=== PATIENT | male | born 1945 | race Caucasian/White ===

== ENCOUNTER 2017-01-13 15:18 | Inpatient (IN) ==
[2017-01-13] MEDS ORDERED: Ipratropium/Albuterol Neb 3 ML IH SCH (18:30)
--- NOTE | 2017-01-13 18:39 | Internal Med History&Physical ---
Date of Encounter: 01/13/17 Time of Encounter: 18:35 Assessment and Plan (1) Acute respiratory failure with hypoxia Current visit: Yes Status: Acute Patient is currently on 5 to 6 L of nasal oxygen. Patient is speaking in 3 Padilla sentences. We will keep BiPAP at bedside any distress patient will be plACED on BiPAP. Arterial blood gas will be performed. (2) Chest pain Current visit: Yes Status: Acute Serial cardiac markers. Qualifiers: Qualified Code(s): R07.9 - Chest pain, unspecified (3) Acute exacerbation of COPD with asthma Current visit: No Status: Acute I will start the patient level IV steroids [id number] nebulizer treatment every 3 hours. (4) Influenzal bronchopneumonia Current visit: No Status: Acute Patient is getting tiny school. I can see on my exam that there are areas of bronchial breathing. Suspected pneumonia. I will therefore sought the patient on broad-spectrum antibiotics with vancomycin aZTRreoNAM and levAQUIN. Check sputum culture Internal Medicine - H&P: HPI Chief complaint: sob History of present illness: Mr. Rod is a 71 year old male with a history of COPD on 2 L home oxygen presents from [facility] after he presented there with them ain' t complaining of shortness of breath. For the past 2 weeks patient has been having wars and shortness of breath to the point where he is unable to breathe rest associated with productive cough of thick yellow sputum chills and notable chest wheezing. He has been using his nebulizer treatment every 4 hours and has received from his doctor multiple courses of steroids and antibiotics without improvement of his symptoms and therefore presented to the emergency room [facility]. Patient also this morning had fevers and chills and his temperature was up to 101 in [facility]. Patient also had episode overthrew sternal chest pain noticed that it will get worse with cough. Denies any prior history of coronary artery disease. Patient was hypoxic on our arrival to [facility] therefore he has been placed on BiPAP with 60% during. Patient mentioned that he was treated empirically for influenza about 2 weeks ago one has caught the flu completed the course over notices no improvement in symptoms. Past Med Surg Social Fam HX - Past Medical History Medical history: COPD, hyperlipidemia Psychiatric history: no psych history - Social History Smoking Status: Former smoker Smokeless Tobacco Status: No Alcohol use: occasionally Drug use: none - Family History Mother Hx Family Cardiac Disorders: Yes Father Hx Family Cardiac Disorders: Yes Hx Family Cancer: Yes Internal Medicine - H&P: Meds Hydrocodone/Acetaminophen [[place] 5-325 Tablet] 1 each PO Q4H PRN #10 tablet [Rx] Ibuprofen [Motrin] 600 mg PO Q6-8H PRN #30 tablet 10/01/15 [Rx] Albuterol Neb [Proventil Neb] 2.5 mg IH Q4HR PRN 10/05/15 [History] Albuterol Sulfate [Proair Respiclick] 2 puff IH Q4H PRN 10/05/15 [History] Budesonide/Formoterol 160/4.5 [Symbicort] 2 puff IH BIDR 10/05/15 [History] Cholecalciferol (Vitamin D3) [Vitamin D] 2,000 unit PO DAILY 10/05/15 [History] Dicyclomine [Bentyl] 10 mg PO QID 10/05/15 [History] Hydrochlorothiazide 25 mg PO DAILY 10/05/15 [History] Hydrocortisone [Cortef] 20 mg PO QAM 10/05/15 [History] Hydrocortisone [Cortef] 40 mg PO QPM 10/05/15 [History] Ipratropium [place] 0 ml NS AD PRN 10/05/15 [History] Levothyroxine [Synthroid] 100 mcg PO QAM 10/05/15 [History] Meclizine [Antivert] 25 mg PO DAILY 10/05/15 [History] Naproxen [Naprosyn] 500 mg PO Q12H 10/05/15 [History] Omeprazole [PriLOSEC] 20 mg PO DAILY 10/05/15 [History] Oxygen 2 l NS AD 10/05/15 [History] PredniSONE 10 mg PO DAILY #63 tablet 10/05/15 [Rx] Roflumilast [Daliresp] 500 mcg PO DAILY 10/05/15 [History] Theophylline Anhydrous [Theodur] 200 mg PO BID 10/05/15 [History] Tiotropium [Spiriva] 18 mcg IH DAILY 10/05/15 [History] Cephalexin [Keflex] 500 mg PO QID #40 capsule 01/11/16 [Rx] HYDROcodone BIT/Homatropine LQ [Hycodan Syrup] 5 mg PO Q6H PRN #120 ml 01/11/16 [Rx] PredniSONE See Taper PO DAILY #18 tablet 01/11/16 [Rx] Hydrocodone/Acetaminophen [[place] 5-325 Tablet] 1 tab PO Q6H PRN #16 tab [Rx] HYDROcodone/Acet 5/325 mg [[place] 5-325 mg] 1 tab PO Q6H PRN #6 tab 12/22/16 [Rx] Allergies fluticasone furoate [From Breo Ellipta] Allergy (Verified 12/22/16 13:08) Anaphylaxis Penicillins Allergy (Verified 12/22/16 13:08) Difficulty Breathing vilanterol [From Breo Ellipta] Allergy (Verified 12/22/16 13:08) Anaphylaxis All Systems PM: A 10-system review of systems was performed and is negative for pertinent findings except as documented above in the HPI. Review of systems: 10 point ROS is negative except for HPI - Constitutional Vitals: Temp Pulse Resp BP Pulse Ox 98.1 F 85 16 125/68 97 01/13/17 18:32 01/13/17 18:32 01/13/17 18:32 01/13/17 18:32 01/13/17 18:32 Exam: Gen.: patient is alert and oriented times 3 mild distress with conversation Gemma: normal S1 S2 no additional sounds remember chest: significantly diminished air entry scattered expiratory wheezing areas of bronchial breathing in the right BASE abdomen soft nontender nondistended lower extremity no swelling
[2017-01-13] MEDS ORDERED: Vancomycin 1,000 MG in D5% in Water 250 ML IVPB SCH (19:00)
[2017-01-13] MEDS ORDERED: Vancomycin 1,500 MG in D5% in Water 250 ML IVPB ONE (19:27)
[2017-01-13] MEDS: Ipratropium/Albuterol Neb 3 ML IH SCH ×2 (19:58→23:18)
[2017-01-13] MEDS: methylPREDNISolone 125 MG/2 ML VIAL IVP SCH (20:35)
[2017-01-14] MEDS: methylPREDNISolone 125 MG/2 ML VIAL IVP SCH ×3 (00:06→16:01)
[2017-01-14] MEDS: Aztreonam 1,000 MG in D5% in Water (Mini-Bag+) 100 ML IVPB SCH ×2 (00:06→09:17)
[2017-01-14] MEDS: Ipratropium/Albuterol Neb 3 ML IH SCH ×8 (03:47→23:11)
[2017-01-14 05:27] LABS: Basophils % 0.1 %; Hematocrit 41.2 % (37.5-50.1); Hemoglobin 13.5 g/dL (12.9-16.9); Immature Granulocytes % 0.9 % (0-4); Lymphocytes # 0.2 K/mcL (0.6-4.6); Lymphocytes % 1.1 %; Mean Corpuscular HGB Conc 32.8 g/dL (31.6-35.5); Mean Corpuscular Hemoglobin 30.3 pg (28.0-33.3); Mean Corpuscular Volume 92.6 fL (83.0-100.0); Mean Platelet Volume 10.4 fL (9.4-12.4); Monocytes # 0.2 K/mcL (0.0-1.3); Monocytes % 1.5 %; Platelet Count 195 K/mcL (140-400); Red Blood Count 4.45 M/mcL (4.19-5.50); Red Cell Distribution Width 13.2 % (11.5-14.5); Segmented Neutrophils % 96.4 %
[2017-01-14 05:28] LABS: Neutrophils # 14.7 K/mcL (1.6-8.9)
[2017-01-14 05:48] LABS: BUN/Creatinine Ratio 20 (6-26); Blood Urea Nitrogen 15 mg/dL (8-26); C-Reactive Protein 53 mg/L (Less than 5); Calcium 8.4 mg/dL (8.6-10.8); Carbon Dioxide 28 mEq/L (19-29); Chloride 105 mEq/L (98-109); Creatine Kinase 54 Units/L (30-200); Glucose 103 mg/dL (70-99); Magnesium 2.3 mg/dL (1.6-2.6); Osmolality,Calculated 291 (280-300); Potassium 4.1 mEq/L (3.5-4.5); Sodium 140 mEq/L (136-145); eGFR For African Americans > 60 (> 60); eGFR For Non-African Americans > 60 (> 60)
[2017-01-14 05:53] LABS: Platelet Estimate Normal (Normal)
[2017-01-14] MEDS ORDERED: Vancomycin 1,000 MG in D5% in Water 250 ML IVPB SCH (08:00)
[2017-01-14] MEDS: Aspirin Enteric Coated 81 MG Tablet PO SCH (09:19)
[2017-01-14] MEDS: Budesonide/Formoterol 160/4.5 MDI IH SCH ×2 (11:13→20:00)
[2017-01-14] MEDS ORDERED: *HR* HYDROcodone/Acet 5/325 mg TABLET PO PRN (11:35)
[2017-01-14] MEDS ORDERED: Acetaminophen 325 MG TABLET PO PRN (11:35)
[2017-01-14] MEDS: Levofloxacin 750 MG/150 ML 750 MG/150 ML BAG IVPB SCH (11:38)
--- NOTE | 2017-01-14 13:53 | Internal Med Progress Note ---
Date of Encounter: 01/13/17 Time of Encounter: 13:51 - Assessment and plan (1) Acute exacerbation of COPD with asthma Current Visit: No Status: Acute Assessment and plan: still wheezing on exam with decreased breath sounds. possible exacerbation 2/2 influenza that is positive. he is on maintenance baseline prednisone at home which he has been taking since he was diagnosed with ILD many yrs ago. will keep him at 60mg IV q8h for now. continue duonebs q4h oliver and home dose inhalers along with 5 days of levoflox. titrate o2 to maintain sats >88-92% uses 2 l of NC at night. CXR shows emphysema with llung nodule, no signs of pneumonia. (2) Acute respiratory failure with hypoxia Current Visit: Yes Status: Acute Assessment and plan: 2/2 COPD exacerbation with influenza h/o ILD on chronic steroids treatment as above. (3) Adrenal insufficiency ([place]'s disease) Current Visit: Yes Status: Acute Assessment and plan: 2/2 chronic steroid use for her ILD she is on low dose hydrocortisone when he is taking 5 mg of prednisone. deana hold for now given that he is on high dose steroids. - Time Spent With Patient 25 - 35 minutes - Subjective Interval history: Patient seen at the bedside, appears to be in mild respiratory distress. However reports that he feels better than yesterday. He has mild cough with no fever or chest pain. Has history of interstitial lung disease and is on daily maintenance prednisone at home. - Constitutional Vitals: Temp Pulse Resp BP Pulse Ox 98.2 F 89 20 135/65 96 01/14/17 11:45 01/14/17 11:45 01/14/17 11:45 01/14/17 11:45 01/14/17 11:45 General appearance: Present: A&O X 3, no acute distress Exam: Gen.: patient is alert and oriented timesx3 CVS: normal S1 S2 no additional sounds . chest: significantly diminished air entry scattered expiratory wheezing abdomen soft nontender nondistended, bs are present ext- lower extremity no swelling Internal Medicine: Result - Labs CBC & Chem 7: 01/14/17 04:28 01/14/17 04:28 Labs: Short CBC 01/14/17 Range/Units 04:28 WBC 15.2 H (4.3-11.1) K/mcL Hgb 13.5 D (12.9-16.9) g/dL Hct 41.2 (37.5-50.1) % Plt Count 195 (140-400) K/mcL Neutrophils # 14.7 H (1.6-8.9) K/mcL BMP 01/14/17 04:28 Sodium 140 Potassium 4.1 Chloride 105 Carbon Dioxide 28 BUN 15 Creatinine 0.74 Glucose 103 H Calcium 8.4 L Cardiac Enzymes 01/13/17 01/14/17 Range/Units 22:02 04:28 Troponin I 0.02 0.02 (0-0.03) ng/mL Consult Discharge Plan - Plan Referrals: Ara Zhang MD [Primary Care Provider] - 01/20/17 10:30 am (Web request made 01/13/17)
[2017-01-14] MEDS ORDERED: Aztreonam 1,000 MG in D5% in Water (Mini-Bag+) 100 ML IVPB SCH (19:00)
[2017-01-15] MEDS: methylPREDNISolone 125 MG/2 ML VIAL IVP SCH ×2 (01:04→09:14)
[2017-01-15] MEDS: Ipratropium/Albuterol Neb 3 ML IH SCH ×6 (04:26→23:13)
[2017-01-15] MEDS: *HR* Enoxaparin 40 MG/0.4 ML SYRINGE SQ SCH (05:49)
[2017-01-15] MEDS: Budesonide/Formoterol 160/4.5 MDI IH SCH ×2 (07:33→19:54)
[2017-01-15] MEDS: Aspirin Enteric Coated 81 MG Tablet PO SCH (09:14)
[2017-01-15 09:37] LABS: Basophils % 0.2 %; Hematocrit 42.5 % (37.5-50.1); Hemoglobin 13.6 g/dL (12.9-16.9); Immature Granulocytes % 1.7 % (0-4); Lymphocytes # 0.2 K/mcL (0.6-4.6); Lymphocytes % 1.6 %; Mean Corpuscular Hemoglobin 29.8 pg (28.0-33.3); Mean Corpuscular Volume 93.2 fL (83.0-100.0); Mean Platelet Volume 10.2 fL (9.4-12.4); Monocytes # 0.4 K/mcL (0.0-1.3); Monocytes % 3.3 %; Neutrophils # 12.3 K/mcL (1.6-8.9); Platelet Count 188 K/mcL (140-400); Red Blood Count 4.56 M/mcL (4.19-5.50); Segmented Neutrophils % 93.2 %
[2017-01-15 09:52] LABS: BUN/Creatinine Ratio 24 (6-26); Blood Urea Nitrogen 17 mg/dL (8-26); Calcium 8.9 mg/dL (8.6-10.8); Carbon Dioxide 31 mEq/L (19-29); Chloride 100 mEq/L (98-109); Glucose 146 mg/dL (70-99); Osmolality,Calculated 288 (280-300); Potassium 4.1 mEq/L (3.5-4.5); Sodium 137 mEq/L (136-145); eGFR For African Americans > 60 (> 60); eGFR For Non-African Americans > 60 (> 60)
--- NOTE | 2017-01-15 12:01 | Internal Med Progress Note ---
Date of Encounter: 01/15/17 Time of Encounter: 11:58 - Assessment and plan (1) Acute exacerbation of COPD with asthma Current Visit: No Status: Acute Assessment and plan: still wheezing on exam with decreased breath sounds. possible exacerbation 2/2 influenza that is positive. he is on maintenance baseline prednisone at home which he has been taking since he was diagnosed with ILD many yrs ago. will decrease steroids to 40mg IV q8h for now. continue duonebs q4h oliver and home dose inhalers along with 5 days of levoflox. titrate o2 to maintain sats >88-92% uses 2 l of NC at night. CXR shows emphysema with llung nodule, no signs of pneumonia. (2) Acute respiratory failure with hypoxia Current Visit: Yes Status: Acute Assessment and plan: 2/2 COPD exacerbation with influenza h/o ILD on chronic steroids treatment as above. (3) Adrenal insufficiency ([place]'s disease) Current Visit: Yes Status: Acute Assessment and plan: 2/2 chronic steroid use for her ILD she is on low dose hydrocortisone when he is taking 5 mg of prednisone. deana hold for now given that he is on high dose steroids. - Time Spent With Patient 25 - 35 minutes - Subjective Interval history: Patient seen at the bedside, appears to be much better today. He has mild cough with no fever or chest pain. Has history of interstitial lung disease and is on daily maintenance prednisone at home. being treated for flu and COPD exacerbation. - Constitutional Vitals: Temp Pulse Resp BP Pulse Ox 98 F 83 84 145/69 96 01/15/17 11:14 01/15/17 11:14 01/15/17 11:14 01/15/17 11:14 01/15/17 11:14 General appearance: Present: A&O X 3, no acute distress Exam: Gen.: patient is alert and oriented timesx3 CVS: normal S1 S2 no additional sounds . chest: significantly diminished air entry , still has wheezing. abdomen soft nontender nondistended, bs are present ext- lower extremity no swelling Internal Medicine: Result - Labs CBC & Chem 7: 01/15/17 09:10 01/15/17 09:10 Labs: Short CBC 01/15/17 Range/Units 09:10 WBC 13.2 H (4.3-11.1) K/mcL Hgb 13.6 (12.9-16.9) g/dL Hct 42.5 (37.5-50.1) % Plt Count 188 (140-400) K/mcL Neutrophils # 12.3 H (1.6-8.9) K/mcL BMP 01/15/17 09:10 Sodium 137 Potassium 4.1 Chloride 100 Carbon Dioxide 31 H BUN 17 Creatinine 0.72 Glucose 146 H Calcium 8.9 Consult Discharge Plan - Plan Referrals: Ara Zhang MD [Primary Care Provider] - 01/20/17 10:30 am (Web request made 01/13/17)
[2017-01-15] MEDS: Levofloxacin 750 MG/150 ML 750 MG/150 ML BAG IVPB SCH (12:58)
[2017-01-15] MEDS: MethylPREDNISolone 40 MG/ML VIAL IVP SCH ×2 (15:46→23:24)
[2017-01-16] MEDS: Ipratropium/Albuterol Neb 3 ML IH SCH ×2 (04:15→07:45)
[2017-01-16] MEDS: *HR* Enoxaparin 40 MG/0.4 ML SYRINGE SQ SCH (04:59)
[2017-01-16 07:13] VITALS: BP 142/85
[2017-01-16] MEDS: Budesonide/Formoterol 160/4.5 MDI IH SCH (07:41)
[2017-01-16] MEDS: MethylPREDNISolone 40 MG/ML VIAL IVP SCH (07:53)
[2017-01-16] MEDS: Aspirin Enteric Coated 81 MG Tablet PO SCH (07:54)
[2017-01-16 08:42] LABS: Basophils % 0.3 %; Hemoglobin 14.5 g/dL (12.9-16.9); Immature Granulocytes % 1.1 % (0-4); Lymphocytes # 0.5 K/mcL (0.6-4.6); Lymphocytes % 4.3 %; Mean Corpuscular HGB Conc 32.2 g/dL (31.6-35.5); Mean Corpuscular Hemoglobin 29.7 pg (28.0-33.3); Mean Platelet Volume 9.7 fL (9.4-12.4); Monocytes # 0.4 K/mcL (0.0-1.3); Monocytes % 3.3 %; Neutrophils # 10.3 K/mcL (1.6-8.9); Platelet Count 202 K/mcL (140-400); Red Blood Count 4.89 M/mcL (4.19-5.50); Red Cell Distribution Width 12.8 % (11.5-14.5)
[2017-01-16 08:56] LABS: BUN/Creatinine Ratio 25 (6-26); Blood Urea Nitrogen 17 mg/dL (8-26); Calcium 9.3 mg/dL (8.6-10.8); Carbon Dioxide 32 mEq/L (19-29); Chloride 98 mEq/L (98-109); Glucose 124 mg/dL (70-99); Osmolality,Calculated 289 (280-300); Potassium 4.1 mEq/L (3.5-4.5); Sodium 138 mEq/L (136-145); eGFR For African Americans > 60 (> 60); eGFR For Non-African Americans > 60 (> 60)
--- NOTE | 2017-01-16 10:12 | Discharge Summary ---
Date of Encounter: 01/16/17 Time of Encounter: 10:07 - Discharge Diagnosis (1) Acute exacerbation of COPD with asthma Priority: Primary Status: Acute (2) Acute respiratory failure with hypoxia Priority: Primary Status: Acute (3) Adrenal insufficiency ([place]'s disease) Priority: Secondary Status: Acute - Discharge Medications Prescriptions: Levofloxacin 750 mg PO DAILY #4 tablet Oseltamivir [Tamiflu] 75 mg PO Q12H 2 Days PredniSONE See Taper PO DAILY #35 tablet Home Medications: Albuterol Neb [Proventil Neb] 2.5 mg IH Q4HR PRN 10/05/15 [History] Albuterol Sulfate [Proair Respiclick] 2 puff IH Q4H PRN 10/05/15 [History] Budesonide/Formoterol 160/4.5 [Symbicort] 2 puff IH BIDR 10/05/15 [History] Cholecalciferol (Vitamin D3) [Vitamin D3] 2,000 unit PO DAILY 10/05/15 [History] Hydrocortisone [Cortef] 20 mg PO QAM 10/05/15 [History] Hydrocortisone [Cortef] 40 mg PO QPM 10/05/15 [History] Ipratropium [place] 0 ml NS AD PRN 10/05/15 [History] Levothyroxine [Synthroid] 100 mcg PO QAM 10/05/15 [History] Omeprazole [PriLOSEC] 20 mg PO DAILY 10/05/15 [History] Oxygen 2 l NS AD 10/05/15 [History] Tiotropium [Spiriva] 18 mcg IH DAILY 10/05/15 [History] Hydrocodone/Acetaminophen [[place] 5-325 Tablet] 1 tab PO Q6H PRN #16 tab [Rx] Clotrimazole [Mycelex Candi] 10 mg PO 5XD 01/14/17 [History] PredniSONE 5 mg PO DAILY 01/14/17 [History] Levofloxacin 750 mg PO DAILY #4 tablet 01/16/17 [Rx] Oseltamivir [Tamiflu] 75 mg PO Q12H 2 Days 01/16/17 [Rx] PredniSONE See Taper PO DAILY #35 tablet 01/16/17 [Rx] Allergies/Adverse Reactions: Allergies fluticasone furoate [From Breo Ellipta] Allergy (Verified 12/22/16 13:08) Anaphylaxis Penicillins Allergy (Verified 12/22/16 13:08) Difficulty Breathing vilanterol [From Breo Ellipta] Allergy (Verified 12/22/16 13:08) Anaphylaxis Date of admission: 01/13/17 18:25 Primary care physician: Ara Zhang, Discharging clinician: Shane Callaway Anticipated date of discharge: 01/16/17 - Patient Status Disposition: Home, Self-Care Condition: Fair Functional capacity at discharge: independent ambulation Overall status at discharge: patient is back to baseline - Discharge Instructions Follow Up With: Ara Zhang MD [Primary Care Provider] - 01/20/17 10:30 am (Web request made 01/13/17) - Diet and Activity Activity: resume usual activities as tolerated Diet: advance to your usual diet Hospital course: Mr. Rod is a 71 year old male - Time Spent with Patient Total time spent providing and/or coordinating discharge services: - Constitutional Vitals: Temp Pulse Resp BP Pulse Ox 98.3 F 79 18 142/85 95 01/16/17 07:12 01/16/17 07:12 01/16/17 07:41 01/16/17 07:41 01/16/17 07:41 General appearance: Present: A&O X 3, no acute distress
[2017-01-16] MEDS ORDERED: Aminoglycoside Consult 1 EACH MC ONE (11:14)
[2017-01-17 11:32] LABS: CK-MB (CK isoenzymes) 0 % (0-4); CK-MM (CK-isoenzymes) 100 % (96-100)
[2017-01-17 11:32] LABS: CK-MB (CK isoenzymes) 0 % (0-4); CK-MM (CK-isoenzymes) 100 % (96-100)
[2017-01-18 07:18] LABS: CK Total (Ck Isoenzymes) 53 U/L (20-200); CK-BB (CK isoenzymes) 0 % (0-0)
[2017-01-18 07:22] LABS: CK Total (Ck Isoenzymes) 53 U/L (20-200); CK-BB (CK isoenzymes) 0 % (0-0)
== END 2017-01-16 11:15 | disposition home or self-care (01) | DRG 190 ==
LOC: 2ANU
PROVIDERS: ADMIT Hospitalist; ATTEND Internal Medicine Endocrinology, Diabetes & Metabolism

== ENCOUNTER 2019-10-25 11:19 | Observation (INO) ==
[2019-10-25] MEDS ORDERED: Albuterol 2.5 MG/3 ML NEBULIZER IH ONE ×2 (11:36→11:45)
[2019-10-25] MEDS ORDERED: Ipratropium/Albuterol Neb 3 ML IH ONE ×2 (11:36→14:03)
[2019-10-25] MEDS ORDERED: methylPREDNISolone 125 MG/2 ML VIAL IVP ONE (11:36)
[2019-10-25 12:14] LABS: Basophils % 0.1 %; Hematocrit 37.8 % (37.5-50.1); Hemoglobin 11.7 g/dL (12.9-16.9); Immature Granulocytes % 0.5 % (0-4); Lymphocytes # 0.8 K/mcL (0.6-4.6); Lymphocytes % 6.3 %; Mean Corpuscular Hemoglobin 29.5 pg (28.0-33.3); Mean Corpuscular Volume 95.5 fL (83.0-100.0); Mean Platelet Volume 10.1 fL (9.4-12.4); Monocytes # 1.2 K/mcL (0.0-1.3); Monocytes % 9.5 %; Neutrophils # 10.6 K/mcL (1.6-8.9); Platelet Count 274 K/mcL (140-400); Red Blood Count 3.96 M/mcL (4.19-5.50); Red Cell Distribution Width 13.2 % (11.5-14.5); Segmented Neutrophils % 83.6 %; White Blood Count 12.6 K/mcL (4.3-11.1)
[2019-10-25 12:33] LABS: Alanine Aminotransferase 11 Units/L (7-52); Albumin 4.2 g/dL (3.5-5.7); Albumin/Globulin Ratio 1.9 (1.1-2.2); Alkaline Phosphatase 53 Units/L (34-104); Aspartate Amino Transferase 15 Units/L (13-39); BUN/Creatinine Ratio 27 (6-26); Bilirubin,Direct 0.1 mg/dL (0.0-0.2); Bilirubin,Indirect 0.3 mg/dL (0.0-1.0); Bilirubin,Total 0.4 mg/dL (0.3-1.0); Blood Urea Nitrogen 19 mg/dL (8-23); Calcium 10.7 mg/dL (8.6-10.3); Carbon Dioxide 36 mEq/L (23-29); Chloride 98 mEq/L (98-107); Globulin 2.2 g/dL (2.4-3.5); Glucose 84 mg/dL (70-105); Osmolality,Calculated 289 (280-300); Potassium 4.6 mEq/L (3.5-5.1); Sodium 139 mEq/L (136-145); Total Protein 6.4 g/dL (6.4-8.9); Troponin I < 0.03 ng/mL (< 0.04); eGFR For African Americans > 60 (> 60); eGFR For Non-African Americans > 60 (> 60)
[2019-10-25] MEDS ORDERED: Naloxone 0.4 MG/ML INJ IVP PRN (15:36)
[2019-10-25] MEDS ORDERED: Acetaminophen 325 MG TABLET PO PRN (15:36)
[2019-10-25] MEDS ORDERED: Ipratropium/Albuterol Neb 3 ML IH PRN (15:42)
[2019-10-25 16:03] LABS: INR 0.8; Prothrombin Time 9.4 Seconds (9.4-12.1)
[2019-10-25 16:05] LABS: Activated Partial Thrombo Time 28.2 Seconds (26.0-36.0)
[2019-10-25] MEDS ORDERED: Cholecalciferol (D-3) 1,000 UNIT (25MCG) TABLET PO SCH (16:30)
[2019-10-25] MEDS: Albuterol 2.5 MG/3 ML NEBULIZER IH SCH ×3 (17:00→23:44)
[2019-10-25] MEDS ORDERED: MethylPREDNISolone 40 MG/ML VIAL IVP SCH (18:00)
[2019-10-25] MEDS: Budesonide/Formoterol 160/4.5 1 PUFF INH IH SCH (19:44)
[2019-10-25] MEDS ORDERED: NON-FORMULARY MEDICATION 1 EACH EACH (Lactose-Reduced Food [Ensure Liquid] 1 BOTTLE) PO SCH (21:00)
[2019-10-25] MEDS: *HR* Heparin 5,000 UNIT/ML VIAL SQ SCH (21:29)
[2019-10-25] MEDS: Doxycycline 100 MG in 0.9 % Sodium Chloride Mini Bag 100 ML IVPB SCH (21:29)
[2019-10-25 22:51] LABS: Adenovirus Not Detected (Not Detect); Bordetella Pertussis Not Detected (Not Detect); Chlamydophila pneumoniae Not Detected (Not Detect); Coronavirus 229E Not Detected (Not Detect); Coronavirus HKU1 DETECTED (Not Detect); Coronavirus NL63 Not Detected (Not Detect); Coronavirus OC43 Not Detected (Not Detect); Human Metapneumovirus Not Detected (Not Detect); Human Rhinovirus/Enterovirus Not Detected (Not Detect); Influenza A Subtype 2009 H1 Not Detected (Not Detect); Influenza B Not Detected (Not Detect); Mycoplasma pneumoniae Not Detected (Not Detect); Parainfluenza Virus 1 Not Detected (Not Detect); Parainfluenza Virus 2 Not Detected (Not Detect); Parainfluenza Virus 3 Not Detected (Not Detect); Parainfluenza Virus 4 Not Detected (Not Detect); Respiratory Syncytial Virus Not Detected (Not Detect)
[2019-10-25] MEDS: MethylPREDNISolone 40 MG/ML VIAL IVP SCH (23:29)
[2019-10-26] MEDS: *HR* OxyCODONE/APAP 7.5/325 TABLET PO PRN ×4 (01:13→18:27)
[2019-10-26] MEDS: Albuterol 2.5 MG/3 ML NEBULIZER IH SCH ×6 (03:26→23:11)
[2019-10-26 06:06] LABS: Hematocrit 39.5 % (37.5-50.1); Hemoglobin 12.4 g/dL (12.9-16.9); Immature Granulocytes % 0.4 % (0-4); Lymphocytes # 0.2 K/mcL (0.6-4.6); Lymphocytes % 2.2 %; Mean Corpuscular HGB Conc 31.4 g/dL (31.6-35.5); Mean Corpuscular Hemoglobin 29.5 pg (28.0-33.3); Mean Platelet Volume 10.2 fL (9.4-12.4); Monocytes # 0.3 K/mcL (0.0-1.3); Monocytes % 2.8 %; Neutrophils # 9.5 K/mcL (1.6-8.9); Platelet Count 283 K/mcL (140-400); Red Cell Distribution Width 13.1 % (11.5-14.5); Segmented Neutrophils % 94.6 %
[2019-10-26 06:13] LABS: BUN/Creatinine Ratio 33 (6-26); Blood Urea Nitrogen 23 mg/dL (8-23); Calcium 9.6 mg/dL (8.6-10.3); Carbon Dioxide 34 mEq/L (23-29); Chloride 99 mEq/L (98-107); Glucose 123 mg/dL (70-105); Magnesium 2.3 mg/dL (1.6-2.6); Osmolality,Calculated 303 (280-300); Phosphorous 3.9 mg/dL (2.7-4.5); Potassium 4.6 mEq/L (3.5-5.1); Sodium 144 mEq/L (136-145); eGFR For African Americans > 60 (> 60); eGFR For Non-African Americans > 60 (> 60)
[2019-10-26] MEDS: *HR* Heparin 5,000 UNIT/ML VIAL SQ SCH ×3 (06:15→23:32)
[2019-10-26] MEDS: Doxycycline 100 MG in 0.9 % Sodium Chloride Mini Bag 100 ML IVPB SCH ×2 (06:16→18:27)
[2019-10-26] MEDS: Budesonide/Formoterol 160/4.5 1 PUFF INH IH SCH ×2 (07:24→19:41)
[2019-10-26] MEDS: Furosemide 40 MG TABLET PO SCH (07:36)
[2019-10-26] MEDS: MethylPREDNISolone 40 MG/ML VIAL IVP SCH ×3 (07:36→23:32)
[2019-10-27] MEDS: *HR* OxyCODONE/APAP 7.5/325 TABLET PO PRN ×4 (01:07→20:57)
[2019-10-27] MEDS: Albuterol 2.5 MG/3 ML NEBULIZER IH SCH ×7 (03:39→23:54)
[2019-10-27] MEDS: Doxycycline 100 MG in 0.9 % Sodium Chloride Mini Bag 100 ML IVPB SCH (05:23)
[2019-10-27] MEDS: *HR* Heparin 5,000 UNIT/ML VIAL SQ SCH ×3 (05:24→20:00)
[2019-10-27] MEDS: Budesonide/Formoterol 160/4.5 1 PUFF INH IH SCH ×2 (07:33→19:49)
[2019-10-27] MEDS: MethylPREDNISolone 40 MG/ML VIAL IVP SCH (07:51)
[2019-10-27] MEDS: Furosemide 40 MG TABLET PO SCH (07:51)
[2019-10-27] MEDS: predniSONE 20 MG TABLET PO SCH (09:53)
[2019-10-27 10:03] LABS: Hematocrit 45.3 % (37.5-50.1); Hemoglobin 13.8 g/dL (12.9-16.9); Mean Corpuscular HGB Conc 30.5 g/dL (31.6-35.5); Mean Corpuscular Hemoglobin 29.8 pg (28.0-33.3); Mean Corpuscular Volume 97.8 fL (83.0-100.0); Mean Platelet Volume 10.4 fL (9.4-12.4); Platelet Count 328 K/mcL (140-400); Red Blood Count 4.63 M/mcL (4.19-5.50); Red Cell Distribution Width 12.9 % (11.5-14.5)
[2019-10-27 10:16] LABS: White Blood Count 15.4 K/mcL (4.3-11.1)
[2019-10-27 10:23] LABS: BUN/Creatinine Ratio 42 (6-26); Blood Urea Nitrogen 28 mg/dL (8-23); Calcium 9.9 mg/dL (8.6-10.3); Carbon Dioxide 37 mEq/L (23-29); Chloride 95 mEq/L (98-107); Glucose 226 mg/dL (70-105); Osmolality,Calculated 301 (280-300); Potassium 4.2 mEq/L (3.5-5.1); Sodium 139 mEq/L (136-145); eGFR For African Americans > 60 (> 60); eGFR For Non-African Americans > 60 (> 60)
[2019-10-27] MEDS: Doxycycline 100 MG CAPSULE PO SCH ×2 (14:45→20:00)
[2019-10-28] MEDS: *HR* OxyCODONE/APAP 7.5/325 TABLET PO PRN ×2 (03:00→08:48)
[2019-10-28] MEDS: Albuterol 2.5 MG/3 ML NEBULIZER IH SCH ×2 (03:49→07:56)
[2019-10-28] MEDS: *HR* Heparin 5,000 UNIT/ML VIAL SQ SCH (05:27)
[2019-10-28 05:39] LABS: Hematocrit 39.6 % (37.5-50.1); Mean Corpuscular HGB Conc 30.8 g/dL (31.6-35.5); Mean Corpuscular Hemoglobin 29.8 pg (28.0-33.3); Mean Corpuscular Volume 96.8 fL (83.0-100.0); Mean Platelet Volume 10.3 fL (9.4-12.4); Platelet Count 269 K/mcL (140-400); Red Blood Count 4.09 M/mcL (4.19-5.50); Red Cell Distribution Width 12.8 % (11.5-14.5); White Blood Count 16.6 K/mcL (4.3-11.1)
[2019-10-28 05:40] LABS: Hemoglobin 12.2 g/dL (12.9-16.9)
[2019-10-28 06:04] LABS: BUN/Creatinine Ratio 45 (6-26); Blood Urea Nitrogen 29 mg/dL (8-23); Carbon Dioxide 41 mEq/L (23-29); Chloride 99 mEq/L (98-107); Glucose 95 mg/dL (70-105); Osmolality,Calculated 300 (280-300); Sodium 142 mEq/L (136-145); eGFR For African Americans > 60 (> 60); eGFR For Non-African Americans > 60 (> 60)
[2019-10-28 06:36] VITALS: BP 126/62
[2019-10-28] MEDS: Budesonide/Formoterol 160/4.5 1 PUFF INH IH SCH (07:56)
[2019-10-28] MEDS: Doxycycline 100 MG CAPSULE PO SCH (08:48)
[2019-10-28] MEDS: predniSONE 20 MG TABLET PO SCH (08:48)
== END 2019-10-28 11:53 | disposition home or self-care (01) ==
LOC: EMEROOARM 11:19 → 3BNU 11:19
PROVIDERS: ADMIT Internal Medicine; ATTEND Internal Medicine

== ENCOUNTER 2020-04-12 19:14 | Inpatient (IN) ==
[2020-04-12] MEDS ORDERED: Nitroglycerin 0.4 MG TAB.SUBL SL ONE (19:27)
[2020-04-12] MEDS: Nitroglycerin 0.4 MG TAB.SUBL SL PRN ×3 (19:30→19:40)
[2020-04-12] MEDS ORDERED: Ipratropium/Albuterol Neb 3 ML IH ONE (19:31)
[2020-04-12] MEDS ORDERED: methylPREDNISolone 125 MG/2 ML VIAL IVP ONE (19:31)
[2020-04-12 19:53] LABS: Basophils % 0.2 %; Eosinophils % 0.2 %; Hematocrit 37.9 % (37.5-50.1); Hemoglobin 11.3 g/dL (12.9-16.9); Immature Granulocytes % 0.4 % (0-4); Lymphocytes # 0.4 K/mcL (0.6-4.6); Lymphocytes % 3.4 %; Mean Corpuscular HGB Conc 29.8 g/dL (31.6-35.5); Mean Corpuscular Hemoglobin 28.7 pg (28.0-33.3); Mean Corpuscular Volume 96.2 fL (83.0-100.0); Mean Platelet Volume 10.2 fL (9.4-12.4); Monocytes # 0.8 K/mcL (0.0-1.3); Monocytes % 6.5 %; Neutrophils # 10.5 K/mcL (1.6-8.9); Platelet Count 302 K/mcL (140-400); Red Blood Count 3.94 M/mcL (4.19-5.50); Red Cell Distribution Width 12.9 % (11.5-14.5); Segmented Neutrophils % 89.3 %; White Blood Count 11.7 K/mcL (4.3-11.1)
[2020-04-12 20:10] LABS: INR 0.8; Prothrombin Time 9.3 Seconds (9.4-12.1)
[2020-04-12 20:13] LABS: Activated Partial Thrombo Time 29.4 Seconds (26.0-36.0)
[2020-04-12 20:20] LABS: BUN/Creatinine Ratio 25 (6-26); Blood Urea Nitrogen 17 mg/dL (8-23); Calcium 10.5 mg/dL (8.6-10.3); Carbon Dioxide 44 mEq/L (23-29); Chloride 93 mEq/L (98-107); Glucose 129 mg/dL (70-105); Osmolality,Calculated 293 (280-300); Potassium 4.3 mEq/L (3.5-5.1); Sodium 140 mEq/L (136-145); Troponin I 0.25 ng/mL (< 0.04); eGFR For African Americans > 60 (> 60); eGFR For Non-African Americans > 60 (> 60)
[2020-04-12] MEDS ORDERED: *HR* Heparin 5,000 UNIT/ML VIAL IVP ONE (20:24)
[2020-04-12] MEDS ORDERED: *HR* Heparin 5,000 UNIT/ML VIAL IVP PRN ×2 (20:24)
[2020-04-12] MEDS ORDERED: Morphine Sulfate 2 MG/ML SYRINGE IVP ONE (20:28)
[2020-04-12] MEDS ORDERED: Heparin 25,000 UNIT/250 ML D5W 25,000 UNIT/250 ML IV.SOLN IVC SCH (20:30)
[2020-04-12] MEDS ORDERED: Naloxone 0.4 MG/ML INJ IVP PRN (22:37)
[2020-04-12] MEDS ORDERED: *HR* OxyCODONE/APAP 7.5/325 TABLET PO PRN (22:38)
[2020-04-12] MEDS ORDERED: LEUPROLIDE ACETATE 30 MG IM SCH (22:45)
[2020-04-12] MEDS ORDERED: NON-FORMULARY MEDICATION 1 EACH EACH (Oxygen 2 L) NS SCH (22:45)
[2020-04-13] MEDS ORDERED: Ipratropium/Albuterol Neb 3 ML IH SCH
[2020-04-13] MEDS: Morphine Sulfate 2 MG/ML SYRINGE IVP PRN ×3 (00:14→22:31)
[2020-04-13] MEDS: Ipratropium/Albuterol Neb 3 ML IH PRN ×3 (03:09→12:55)
[2020-04-13 03:18] LABS: Basophils % 0.1 %; Hematocrit 35.8 % (37.5-50.1); Immature Granulocytes % 0.4 % (0-4); Lymphocytes # 0.3 K/mcL (0.6-4.6); Lymphocytes % 2.9 %; Mean Corpuscular HGB Conc 30.7 g/dL (31.6-35.5); Mean Corpuscular Hemoglobin 29.1 pg (28.0-33.3); Mean Corpuscular Volume 94.7 fL (83.0-100.0); Mean Platelet Volume 10.5 fL (9.4-12.4); Monocytes # 0.1 K/mcL (0.0-1.3); Monocytes % 0.6 %; Neutrophils # 8.9 K/mcL (1.6-8.9); Platelet Count 277 K/mcL (140-400); Red Blood Count 3.78 M/mcL (4.19-5.50); Red Cell Distribution Width 12.9 % (11.5-14.5); White Blood Count 9.3 K/mcL (4.3-11.1)
[2020-04-13 03:39] LABS: BUN/Creatinine Ratio 33 (6-26); Blood Urea Nitrogen 16 mg/dL (8-23); Carbon Dioxide 40 mEq/L (23-29); Chloride 95 mEq/L (98-107); Glucose 141 mg/dL (70-105); Osmolality,Calculated 294 (280-300); Potassium 4.3 mEq/L (3.5-5.1); Sodium 140 mEq/L (136-145); eGFR For African Americans > 60 (> 60); eGFR For Non-African Americans > 60 (> 60)
[2020-04-13 06:02] LABS: VBG HCO3 41 mEq/L (21-27); VBG PCO2 65 mmHg (41-51); VBG PH 7.41 pH Units (7.32-7.42); VBG PO2 223 mmHg (25-50)
[2020-04-13] MEDS: Budesonide/Formoterol 160/4.5 1 PUFF INH IH SCH ×2 (07:39→22:20)
[2020-04-13] MEDS: Doxycycline 100 MG CAPSULE PO SCH ×2 (08:19→22:31)
[2020-04-13] MEDS: Loratadine 10 MG TABLET PO SCH (08:19)
[2020-04-13] MEDS ORDERED: predniSONE 20 MG TABLET PO SCH (09:00)
[2020-04-13] MEDS ORDERED: NON-FORMULARY MEDICATION 1 EACH EACH (Lactose-Reduced Food [Ensure Liquid] 1 BOTTLE) PO SCH (09:00)
[2020-04-13] MEDS ORDERED: NON-FORMULARY MEDICATION 1 EACH EACH (Roflumilast [Daliresp] 500 MCG) PO SCH (09:00)
[2020-04-13] MEDS ORDERED: MethylPREDNISolone 40 MG/ML VIAL IVP SCH (09:00)
[2020-04-13] MEDS ORDERED: *HR* FentaNYL (PF) 100 MCG/2 ML VIAL ONE ×2 (10:25→16:14)
[2020-04-13] MEDS ORDERED: *HR* Midazolam HCl 2 MG/2 ML VIAL ONE ×2 (10:25→16:14)
[2020-04-13] MEDS ORDERED: Heparin 1,000 UNITS/500 mL 500 ML ONE ×2 (10:26→16:02)
[2020-04-13] MEDS ORDERED: Nitroglycerin 1,000 MCG/10 ML VIAL IV ONE ×2 (10:26→16:02)
[2020-04-13] MEDS ORDERED: Tirofiban 12.5 MG/250ML 12.5 MG/250 ML BAG ONE (10:26)
[2020-04-13] MEDS ORDERED: ISOVUE-370 200 ML INFUS..BTL ONE ×2 (10:26→16:02)
[2020-04-13] MEDS ORDERED: *HR* Heparin 10,000 UNIT/10 ML VIAL ONE ×2 (10:26→16:02)
[2020-04-13] MEDS ORDERED: 0.9 % Sodium Chloride 1,000 ML ONE ×4 (10:28→21:10)
[2020-04-13] MEDS ORDERED: Ipratropium/Albuterol Neb 3 ML IH ONE (11:04)
[2020-04-13] MEDS ORDERED: Ipratropium Neb 0.5 MG NEBULIZER IH PRN (12:32)
[2020-04-13] MEDS ORDERED: Artificial Tears SOLN 15 ML BOTTLE BOTH EYES PRN (14:33)
[2020-04-13] MEDS ORDERED: Midazolam HCl 50 MG/100 ML IV.SOLN IVC SCH (14:45)
[2020-04-13] MEDS ORDERED: FentaNYL (PF) 1,000 MCG/100 ML IV.SOLN IVC SCH (14:45)
[2020-04-13] MEDS ORDERED: Artificial Tears SOLN 15 ML BOTTLE BOTH EYES SCH (16:00)
[2020-04-13] MEDS: Ipratropium/Albuterol Neb 3 ML IH SCH ×2 (16:10→22:20)
[2020-04-13] MEDS: MethylPREDNISolone 40 MG/ML VIAL IVP SCH ×3 (16:13→22:31)
[2020-04-13] MEDS ORDERED: Tirofiban 12.5 MG/250ML 12.5 MG/250 ML BAG IVC SCH (17:30)
[2020-04-13] MEDS ORDERED: Chlorhexidine Rinse 15 ML MOUTHWASH MM SCH (21:00)
[2020-04-14 01:15] LABS: Basophils % 0.1 %; Hematocrit 37.8 % (37.5-50.1); Hemoglobin 11.9 g/dL (12.9-16.9); Immature Granulocytes % 0.4 % (0-4); Lymphocytes # 0.3 K/mcL (0.6-4.6); Mean Corpuscular HGB Conc 31.5 g/dL (31.6-35.5); Mean Platelet Volume 10.6 fL (9.4-12.4); Monocytes # 0.5 K/mcL (0.0-1.3); Monocytes % 3.9 %; Neutrophils # 11.7 K/mcL (1.6-8.9); Platelet Count 297 K/mcL (140-400); Red Blood Count 4.11 M/mcL (4.19-5.50); Segmented Neutrophils % 93.6 %; White Blood Count 12.5 K/mcL (4.3-11.1)
[2020-04-14 01:32] LABS: BUN/Creatinine Ratio 35 (6-26); Blood Urea Nitrogen 20 mg/dL (8-23); Calcium 9.9 mg/dL (8.6-10.3); Carbon Dioxide 34 mEq/L (23-29); Chloride 98 mEq/L (98-107); Glucose 170 mg/dL (70-105); Osmolality,Calculated 297 (280-300); Potassium 3.4 mEq/L (3.5-5.1); Sodium 140 mEq/L (136-145); eGFR For African Americans > 60 (> 60); eGFR For Non-African Americans > 60 (> 60)
[2020-04-14 01:33] LABS: Chol/HDL Ratio 2.6 (0-4.9)
[2020-04-14] MEDS: Ipratropium/Albuterol Neb 3 ML IH PRN (02:03)
[2020-04-14] MEDS: Morphine Sulfate 2 MG/ML SYRINGE IVP PRN (03:43)
[2020-04-14] MEDS: Ipratropium/Albuterol Neb 3 ML IH SCH ×4 (04:46→22:05)
[2020-04-14] MEDS: MethylPREDNISolone 40 MG/ML VIAL IVP SCH ×3 (06:42→21:25)
[2020-04-14 07:07] LABS: Estimated Average Glucose 114 mg/dl; Hemoglobin A1C 5.6 %
[2020-04-14] MEDS: Loratadine 10 MG TABLET PO SCH (07:54)
[2020-04-14] MEDS: Doxycycline 100 MG CAPSULE PO SCH ×2 (07:54→21:25)
[2020-04-14] MEDS: Pantoprazole 40 MG VIAL IVP SCH (07:54)
[2020-04-14] MEDS: *HR* OxyCODONE/APAP 7.5/325 TABLET PO PRN ×3 (09:55→21:25)
[2020-04-14] MEDS: Budesonide/Formoterol 160/4.5 1 PUFF INH IH SCH ×2 (10:59→22:13)
[2020-04-14] MEDS: Metoprolol XL (24 HR) Succ 25 MG TAB.ER.24H PO SCH (11:02)
[2020-04-14] MEDS: Aspirin Enteric Coated 81 MG Tablet PO SCH (11:02)
[2020-04-14] MEDS: *HR* Heparin 5,000 UNIT/ML VIAL SQ SCH (17:39)
[2020-04-15 01:13] LABS: Basophils % 0.1 %; Hematocrit 36.9 % (37.5-50.1); Hemoglobin 11.9 g/dL (12.9-16.9); Immature Granulocytes % 0.3 % (0-4); Lymphocytes # 0.3 K/mcL (0.6-4.6); Lymphocytes % 2.4 %; Mean Corpuscular HGB Conc 32.2 g/dL (31.6-35.5); Mean Corpuscular Volume 92.9 fL (83.0-100.0); Mean Platelet Volume 10.7 fL (9.4-12.4); Monocytes # 0.6 K/mcL (0.0-1.3); Neutrophils # 12.9 K/mcL (1.6-8.9); Platelet Count 274 K/mcL (140-400); Red Blood Count 3.97 M/mcL (4.19-5.50); Red Cell Distribution Width 13.2 % (11.5-14.5); Segmented Neutrophils % 93.2 %; White Blood Count 13.8 K/mcL (4.3-11.1)
[2020-04-15 01:18] LABS: BUN/Creatinine Ratio 49 (6-26); Blood Urea Nitrogen 33 mg/dL (8-23); Calcium 10.2 mg/dL (8.6-10.3); Carbon Dioxide 34 mEq/L (23-29); Chloride 102 mEq/L (98-107); Glucose 126 mg/dL (70-105); Osmolality,Calculated 301 (280-300); Potassium 4.1 mEq/L (3.5-5.1); Sodium 141 mEq/L (136-145); eGFR For African Americans > 60 (> 60); eGFR For Non-African Americans > 60 (> 60)
[2020-04-15] MEDS: Ipratropium/Albuterol Neb 3 ML IH SCH ×2 (03:32→10:54)
[2020-04-15] MEDS: *HR* OxyCODONE/APAP 7.5/325 TABLET PO PRN (04:31)
[2020-04-15] MEDS: *HR* Heparin 5,000 UNIT/ML VIAL SQ SCH (06:07)
[2020-04-15 07:13] VITALS: BP 109/61
[2020-04-15] MEDS: Loratadine 10 MG TABLET PO SCH (07:35)
[2020-04-15] MEDS: Aspirin Enteric Coated 81 MG Tablet PO SCH (07:35)
[2020-04-15] MEDS: MethylPREDNISolone 40 MG/ML VIAL IVP SCH (07:36)
[2020-04-15] MEDS: Doxycycline 100 MG CAPSULE PO SCH (07:36)
[2020-04-15] MEDS: Metoprolol XL (24 HR) Succ 25 MG TAB.ER.24H PO SCH (07:36)
[2020-04-15] MEDS: Pantoprazole 40 MG VIAL IVP SCH (07:36)
[2020-04-15] MEDS ORDERED: lisinopriL 5 MG TABLET PO SCH (09:00)
[2020-04-15] MEDS: Budesonide/Formoterol 160/4.5 1 PUFF INH IH SCH (10:54)
[2020-04-18] MEDS ORDERED: Cholecalciferol (D-3) 1,000 UNIT (25MCG) TABLET PO SCH (09:00)
== END 2020-04-15 13:05 | disposition home or self-care (01) | DRG 246 ==
LOC: EMEROOARM 19:14 → 2NNU 19:14 → SUATTDRO 04-13 04:13
PROVIDERS: ADMIT Family Medicine; ATTEND Internal Medicine

== ENCOUNTER 2020-08-13 19:55 | Observation (INO) ==
[2020-08-13] MEDS ORDERED: Aspirin 81 MG TAB.CHEW PO ONE (20:03)
[2020-08-13] MEDS ORDERED: Nitroglycerin 0.4 MG TAB.SUBL SL PRN (20:03)
[2020-08-13] MEDS ORDERED: Isovue-370 500 ML BOTTLE IVP ONE (20:15)
[2020-08-13 20:31] LABS: Basophils % 0.2 %; Hemoglobin 6.8 g/dL (12.9-16.9)
[2020-08-13 20:32] LABS: Eosinophils # 0.1 K/mcL (0.0-0.6); Eosinophils % 0.9 %; Hematocrit 22.6 % (37.5-50.1); Immature Granulocytes % 0.1 % (0-4); Lymphocytes % 10.8 %; Mean Corpuscular HGB Conc 30.1 g/dL (31.6-35.5); Mean Corpuscular Hemoglobin 27.2 pg (28.0-33.3); Mean Corpuscular Volume 90.4 fL (83.0-100.0); Mean Platelet Volume 10.2 fL (9.4-12.4); Monocytes # 0.7 K/mcL (0.0-1.3); Monocytes % 7.7 %; Neutrophils # 7.5 K/mcL (1.6-8.9); Platelet Count 410 K/mcL (140-400); Red Cell Distribution Width 14.1 % (11.5-14.5); Segmented Neutrophils % 80.3 %; White Blood Count 9.3 K/mcL (4.3-11.1)
[2020-08-13 20:52] LABS: INR 0.9; Prothrombin Time 10.4 Seconds (9.4-12.1)
[2020-08-13 20:55] LABS: Activated Partial Thrombo Time 27.7 Seconds (26.0-36.0)
[2020-08-13 20:56] LABS: BUN/Creatinine Ratio 31 (6-26); Blood Urea Nitrogen 22 mg/dL (8-23); Calcium 8.8 mg/dL (8.6-10.3); Carbon Dioxide 42 mEq/L (23-29); Chloride 93 mEq/L (98-107); Glucose 105 mg/dL (70-105); Osmolality,Calculated 294 (280-300); Potassium 3.9 mEq/L (3.5-5.1); Sodium 140 mEq/L (136-145); Troponin I < 0.03 ng/mL (< 0.04); eGFR For African Americans > 60 (> 60); eGFR For Non-African Americans > 60 (> 60)
[2020-08-13 21:57] LABS: Bilirubin,Urine Negative (Negative); Blood,Urine Negative (Negative); Clarity,Urine Clear (Clear); Color,Urine Colorless (Yellow); Glucose,Urine (UA) Normal (Normal); Ketones,Urine Negative (Negative); Leukocyte Esterase,Urine Negative (Negative); Nitrite,Urine Negative (Negative); PH,Urine 7.5 pH Units (5.0-8.0); Protein,Urine Negative (Neg-Trace); Specific Gravity,Urine 1.023 (1.010-1.025); Urobilinogen,Urine Normal (Normal)
[2020-08-13 22:47] LABS: Adenovirus Not Detected (Not Detect); Bordetella Pertussis Not Detected (Not Detect); Chlamydophila pneumoniae Not Detected (Not Detect); Coronavirus 229E Not Detected (Not Detect); Coronavirus HKU1 Not Detected (Not Detect); Coronavirus NL63 Not Detected (Not Detect); Coronavirus OC43 Not Detected (Not Detect); Human Metapneumovirus Not Detected (Not Detect); Human Rhinovirus/Enterovirus Not Detected (Not Detect); Influenza A Subtype 2009 H1 Not Detected (Not Detect); Influenza B Not Detected (Not Detect); Mycoplasma pneumoniae Not Detected (Not Detect); Parainfluenza Virus 1 Not Detected (Not Detect); Parainfluenza Virus 2 Not Detected (Not Detect); Parainfluenza Virus 3 Not Detected (Not Detect); Parainfluenza Virus 4 Not Detected (Not Detect); Respiratory Syncytial Virus Not Detected (Not Detect); SARS-CoV-2 Not Detected (Not Detect)
[2020-08-13] MEDS: *HR* OxyCODONE/APAP 7.5/325 TABLET PO PRN (22:56)
[2020-08-13] MEDS ORDERED: Naloxone 0.4 MG/ML INJ IVP PRN (23:03)
[2020-08-13] MEDS ORDERED: Ondansetron ODT 4 MG TAB.RAPDIS SL PRN (23:03)
[2020-08-13] MEDS ORDERED: Acetaminophen 325 MG TABLET PO PRN (23:03)
[2020-08-13] MEDS ORDERED: 0.9 % Sodium Chloride 500 ML ONE (23:13)
[2020-08-14] MEDS ORDERED: Ipratropium/Albuterol Neb 3 ML IH ONE (01:49)
[2020-08-14] MEDS ORDERED: Ipratropium/Albuterol Neb 3 ML ONE (01:59)
[2020-08-14 02:38] LABS: Hematocrit 24.2 % (37.5-50.1); Hemoglobin 7.4 g/dL (12.9-16.9); Mean Corpuscular HGB Conc 30.6 g/dL (31.6-35.5); Mean Corpuscular Hemoglobin 27.7 pg (28.0-33.3); Mean Corpuscular Volume 90.6 fL (83.0-100.0); Mean Platelet Volume 10.2 fL (9.4-12.4); Platelet Count 351 K/mcL (140-400); Red Blood Count 2.67 M/mcL (4.19-5.50); White Blood Count 9.6 K/mcL (4.3-11.1)
[2020-08-14 02:58] LABS: BUN/Creatinine Ratio 34 (6-26); Blood Urea Nitrogen 22 mg/dL (8-23); Calcium 8.7 mg/dL (8.6-10.3); Carbon Dioxide 42 mEq/L (23-29); Chloride 95 mEq/L (98-107); Glucose 109 mg/dL (70-105); Osmolality,Calculated 294 (280-300); Potassium 3.7 mEq/L (3.5-5.1); Sodium 140 mEq/L (136-145); eGFR For African Americans > 60 (> 60); eGFR For Non-African Americans > 60 (> 60)
[2020-08-14] MEDS: Ipratropium/Albuterol Neb 3 ML IH SCH ×5 (04:23→23:02)
[2020-08-14 04:24] LABS: % Iron Saturation 8 % (20-55); Iron 33 mcg/dL (65-175); Transferrin 313 mg/dL (203-362)
[2020-08-14 04:42] LABS: Ferritin < 8 ng/mL (20-250)
[2020-08-14 04:45] LABS: Folate 13.1 ng/mL (3.0-16.0)
[2020-08-14] MEDS: *HR* OxyCODONE/APAP 7.5/325 TABLET PO PRN ×4 (05:36→20:49)
[2020-08-14] MEDS: *HR* Heparin 5,000 UNIT/ML VIAL SQ SCH ×2 (05:37→17:15)
[2020-08-14] MEDS: Furosemide 40 MG TABLET PO SCH (08:30)
[2020-08-14] MEDS: lisinopriL 5 MG TABLET PO SCH (08:30)
[2020-08-14] MEDS: Aspirin Enteric Coated 81 MG Tablet PO SCH (08:30)
[2020-08-14] MEDS: predniSONE 10 MG TABLET PO SCH (08:30)
[2020-08-14] MEDS ORDERED: Metoprolol XL (24 HR) Succ 25 MG TAB.ER.24H PO SCH (09:00)
[2020-08-14] MEDS ORDERED: Iron Sucrose Complex 400 MG in 0.9 % Sodium Chloride 250 ML IVPB ONE (09:14)
[2020-08-14] MEDS: (Roflumilast [Daliresp] 500 MCG) PO SCH (09:59)
[2020-08-14] MEDS: (Tiotropium Br/Olodaterol Hcl [Stiolto Respimat Inhal IH SCH (10:00)
[2020-08-14] MEDS: Budesonide/Formoterol 160/4.5 1 PUFF INH IH SCH ×2 (10:07→19:52)
[2020-08-14] MEDS: Loratadine 10 MG TABLET PO SCH (10:09)
[2020-08-14] MEDS: Metoprolol XL (24 HR) Succ 25 MG TAB.ER.24H PO SCH (10:10)
[2020-08-14 15:31] LABS: Hematocrit 24.3 % (37.5-50.1); Hemoglobin 7.2 g/dL (12.9-16.9)
[2020-08-14] MEDS ORDERED: SODIUM CHLORIDE/NAHCO3/KCL/PEG 4,000 ML SOLN.RECON PO ONE (17:00)
[2020-08-14] MEDS ORDERED: 0.9 % Sodium Chloride 250 ML ONE (17:50)
[2020-08-14 22:29] LABS: Hematocrit 27.7 % (37.5-50.1); Hemoglobin 8.3 g/dL (12.9-16.9)
[2020-08-15] MEDS: *HR* OxyCODONE/APAP 7.5/325 TABLET PO PRN ×4 (02:41→16:17)
[2020-08-15 02:48] LABS: Basophils % 0.3 %; Eosinophils # 0.4 K/mcL (0.0-0.6); Eosinophils % 3.1 %; Hematocrit 27.2 % (37.5-50.1); Hemoglobin 8.5 g/dL (12.9-16.9); Immature Granulocytes % 0.3 % (0-4); Lymphocytes # 0.6 K/mcL (0.6-4.6); Lymphocytes % 5.4 %; Mean Corpuscular HGB Conc 31.3 g/dL (31.6-35.5); Mean Corpuscular Hemoglobin 27.7 pg (28.0-33.3); Mean Corpuscular Volume 88.6 fL (83.0-100.0); Mean Platelet Volume 10.2 fL (9.4-12.4); Monocytes # 0.9 K/mcL (0.0-1.3); Monocytes % 7.7 %; Neutrophils # 9.6 K/mcL (1.6-8.9); Platelet Count 347 K/mcL (140-400); Red Blood Count 3.07 M/mcL (4.19-5.50); Red Cell Distribution Width 14.6 % (11.5-14.5); Segmented Neutrophils % 83.2 %; White Blood Count 11.6 K/mcL (4.3-11.1)
[2020-08-15] MEDS: Ipratropium/Albuterol Neb 3 ML IH SCH ×4 (03:36→15:25)
[2020-08-15] MEDS: *HR* Heparin 5,000 UNIT/ML VIAL SQ SCH (06:22)
[2020-08-15] MEDS: Budesonide/Formoterol 160/4.5 1 PUFF INH IH SCH (07:15)
[2020-08-15] MEDS ORDERED: Ergocalciferol (VIT D2) 50,000 UNIT (1.25MG) CAP PO SCH (09:05)
[2020-08-15] MEDS ORDERED: Lidocaine -MPF 2% 2 ML VIAL ONE (09:15)
[2020-08-15] MEDS ORDERED: *HR* PHENYLEPHRINE 1,000 MCG/10 ML SYRINGE IVP ONE (09:59)
[2020-08-15 11:27] VITALS: BP 138/64
[2020-08-15] MEDS ORDERED: Iron Sucrose Complex 400 MG in 0.9 % Sodium Chloride 250 ML IVPB ONE (11:32)
[2020-08-15] MEDS ORDERED: Cyanocobalamin (B-12) 1,000 MCG/ML VIAL SQ ONE (11:33)
[2020-08-15] MEDS: predniSONE 10 MG TABLET PO SCH (12:10)
[2020-08-15] MEDS: Metoprolol XL (24 HR) Succ 25 MG TAB.ER.24H PO SCH (12:10)
[2020-08-15] MEDS: lisinopriL 5 MG TABLET PO SCH ×2 (12:10→12:16)
[2020-08-15] MEDS: Aspirin Enteric Coated 81 MG Tablet PO SCH (12:10)
[2020-08-15] MEDS: Loratadine 10 MG TABLET PO SCH (12:11)
[2020-08-15] MEDS: Furosemide 40 MG TABLET PO SCH (12:11)
[2020-08-15] MEDS: (Roflumilast [Daliresp] 500 MCG) PO SCH (12:12)
[2020-08-15] MEDS: (Tiotropium Br/Olodaterol Hcl [Stiolto Respimat Inhal IH SCH (12:12)
== END 2020-08-15 16:55 | disposition home or self-care (01) ==
LOC: EMEROOARM 19:55 → 3BNU 19:55 → SUATTDRO 23:26 → 3BNU 08-14 00:04
PROVIDERS: ADMIT Family Medicine; ATTEND Internal Medicine

== ENCOUNTER 2021-08-04 11:53 | Inpatient (IN) ==
[2021-08-04] MEDS ORDERED: 0.9 % Sodium Chloride 1,000 ML IVC ONE (12:23)
[2021-08-04 12:58] LABS: Hemoglobin 11.1 g/dL (12.9-16.9); Platelet Count 306 K/mcL (140-400)
[2021-08-04 12:59] LABS: Hematocrit 36.3 % (37.5-50.1); Lymphocytes # 0.4 K/mcL (0.6-4.6); Mean Corpuscular HGB Conc 30.6 g/dL (31.6-35.5); Mean Corpuscular Hemoglobin 28.6 pg (28.0-33.3); Mean Corpuscular Volume 93.6 fL (83.0-100.0); Mean Platelet Volume 10.2 fL (9.4-12.4); Red Blood Count 3.88 M/mcL (4.19-5.50); Red Cell Distribution Width 14.6 % (11.5-14.5)
[2021-08-04 13:01] LABS: White Blood Count 37.8 K/mcL (4.3-11.1)
[2021-08-04] MEDS ORDERED: cefTRIAXone 2,000 MG in Water for inj. (sterile) 20 ML IVP ONE (13:05)
[2021-08-04 13:07] LABS: INR 1.2; Prothrombin Time 12.9 Seconds (9.4-12.1)
[2021-08-04 13:09] LABS: Activated Partial Thrombo Time 32.3 Seconds (26.0-36.0)
[2021-08-04 13:41] LABS: Alanine Aminotransferase 6 Units/L (7-52); Albumin 3.5 g/dL (3.5-5.7); Albumin/Globulin Ratio 1.4 (1.1-2.2); Alkaline Phosphatase 71 Units/L (34-104); Aspartate Amino Transferase 11 Units/L (13-39); BUN/Creatinine Ratio 31 (6-26); Bilirubin,Direct 0.1 mg/dL (0.0-0.2); Bilirubin,Indirect 0.4 mg/dL (0.0-1.0); Bilirubin,Total 0.5 mg/dL (0.3-1.0); Blood Urea Nitrogen 20 mg/dL (8-23); Calcium 9.6 mg/dL (8.6-10.3); Carbon Dioxide 36 mEq/L (23-29); Chloride 95 mEq/L (98-107); Globulin 2.5 g/dL (2.4-3.5); Glucose 72 mg/dL (70-105); Osmolality,Calculated 287 (280-300); Potassium 3.8 mEq/L (3.5-5.1); Sodium 138 mEq/L (136-145); Troponin I < 0.03 ng/mL (< 0.04); eGFR For African Americans > 60 (> 60); eGFR For Non-African Americans > 60 (> 60)
[2021-08-04 13:42] LABS: Influenza A PCR Negative (Negative); Influenza B PCR Negative (Negative); Resp. Syncytial Virus PCR Negative (Negative)
[2021-08-04 13:42] LABS: Monocytes # 2.7 K/mcL (0.0-1.3); Neutrophils # 32.5 K/mcL (1.6-8.9); Platelet Estimate Normal (Normal)
[2021-08-04 13:46] LABS: SARS-CoV-2 by PCR (In House) Negative (Negative)
[2021-08-04] MEDS ORDERED: Ipratropium/Albuterol Neb 3 ML IH ONE (14:07)
[2021-08-04] MEDS ORDERED: *HR* OxyCODONE/APAP 5/325 TABLET PO ONE (14:07)
[2021-08-04] MEDS ORDERED: Azithromycin 500 MG in 0.9 % Sodium Chloride 250 ML IVPB ONE (14:40)
[2021-08-04] MEDS ORDERED: Ondansetron ODT 4 MG TAB.RAPDIS SL PRN (16:12)
[2021-08-04] MEDS ORDERED: Mag Hydrox/Al Hydrox/Simeth 30 ML UDC PO PRN (16:12)
[2021-08-04] MEDS ORDERED: MOM Conc 10 ML UD.LIQ PO PRN (16:12)
[2021-08-04] MEDS ORDERED: Naloxone 0.4 MG/ML INJ IVP PRN (16:12)
[2021-08-04] MEDS ORDERED: Isovue-370 500 ML BOTTLE IVP ONE (16:16)
[2021-08-04] MEDS ORDERED: Furosemide 20 MG TABLET PO PRN (16:19)
[2021-08-04] MEDS ORDERED: Ipratropium/Albuterol Neb 3 ML IH PRN (18:01)
[2021-08-04] MEDS: *HR* OxyCODONE/APAP 7.5/325 TABLET PO PRN (18:38)
[2021-08-04] MEDS: Budesonide/Formoterol 160/4.5 1 PUFF INH IH SCH (21:47)
[2021-08-05] MEDS: *HR* OxyCODONE/APAP 7.5/325 TABLET PO PRN ×3 (00:39→17:10)
[2021-08-05] MEDS: Ipratropium/Albuterol Neb 3 ML IH SCH ×6 (04:00→23:27)
[2021-08-05] MEDS: *HR* Enoxaparin 40 MG/0.4 ML SYRINGE SQ SCH (05:27)
[2021-08-05 05:28] LABS: Red Cell Distribution Width 14.6 % (11.5-14.5)
[2021-08-05 05:29] LABS: Hematocrit 32.6 % (37.5-50.1); Hemoglobin 10.2 g/dL (12.9-16.9); Mean Corpuscular HGB Conc 31.3 g/dL (31.6-35.5); Mean Corpuscular Hemoglobin 29.1 pg (28.0-33.3); Mean Corpuscular Volume 92.9 fL (83.0-100.0); Mean Platelet Volume 10.5 fL (9.4-12.4); Platelet Count 296 K/mcL (140-400); Red Blood Count 3.51 M/mcL (4.19-5.50)
[2021-08-05 05:48] LABS: BUN/Creatinine Ratio 32 (6-26); Blood Urea Nitrogen 19 mg/dL (8-23); Calcium 8.9 mg/dL (8.6-10.3); Carbon Dioxide 30 mEq/L (23-29); Chloride 98 mEq/L (98-107); Glucose 41 mg/dL (70-105); Osmolality,Calculated 283 (280-300); Potassium 3.8 mEq/L (3.5-5.1); Sodium 137 mEq/L (136-145); eGFR For African Americans > 60 (> 60); eGFR For Non-African Americans > 60 (> 60)
[2021-08-05] MEDS: Azithromycin 500 MG in 0.9 % Sodium Chloride 250 ML IVPB SCH (08:20)
[2021-08-05] MEDS: Aspirin Enteric Coated 81 MG Tablet PO SCH (08:24)
[2021-08-05] MEDS: Metoprolol XL (24 HR) Succ 25 MG TAB.ER.24H PO SCH (08:24)
[2021-08-05] MEDS: predniSONE 10 MG TABLET PO SCH (08:24)
[2021-08-05] MEDS: Budesonide/Formoterol 160/4.5 1 PUFF INH IH SCH ×2 (08:28→19:55)
[2021-08-05] MEDS ORDERED: cefTRIAXone 1,000 MG in 0.9 % Sodium Chloride Mini Bag 100 ML IVPB SCH (09:00)
[2021-08-05] MEDS: cefTRIAXone 2,000 MG in 0.9 % Sodium Chloride Mini Bag 100 ML IVPB SCH (09:41)
[2021-08-05] MEDS: MetroNIDAZOLE 500 MG/100 ML 500 MG/100 ML BAG IVPB SCH ×2 (10:50→17:11)
[2021-08-06] MEDS: *HR* OxyCODONE/APAP 7.5/325 TABLET PO PRN ×4 (00:45→23:51)
[2021-08-06] MEDS: MetroNIDAZOLE 500 MG/100 ML 500 MG/100 ML BAG IVPB SCH ×3 (03:05→17:31)
[2021-08-06] MEDS: Ipratropium/Albuterol Neb 3 ML IH SCH ×5 (03:54→20:18)
[2021-08-06] MEDS: *HR* Enoxaparin 40 MG/0.4 ML SYRINGE SQ SCH (05:34)
[2021-08-06] MEDS: Budesonide/Formoterol 160/4.5 1 PUFF INH IH SCH ×2 (07:27→20:18)
[2021-08-06] MEDS: Aspirin Enteric Coated 81 MG Tablet PO SCH (08:29)
[2021-08-06] MEDS: Metoprolol XL (24 HR) Succ 25 MG TAB.ER.24H PO SCH (08:30)
[2021-08-06] MEDS: predniSONE 10 MG TABLET PO SCH (08:30)
[2021-08-06] MEDS: cefTRIAXone 2,000 MG in 0.9 % Sodium Chloride Mini Bag 100 ML IVPB SCH (08:30)
[2021-08-06] MEDS: Azithromycin 500 MG in 0.9 % Sodium Chloride 250 ML IVPB SCH (08:31)
[2021-08-06 09:11] LABS: Hemoglobin 9.9 g/dL (12.9-16.9); Nucleated Red Blood Cells 0.1 /100 WBC (0); Platelet Count 306 K/mcL (140-400)
[2021-08-06 09:14] LABS: Hematocrit 31.7 % (37.5-50.1); Mean Corpuscular HGB Conc 31.2 g/dL (31.6-35.5); Mean Corpuscular Hemoglobin 28.5 pg (28.0-33.3); Mean Corpuscular Volume 91.4 fL (83.0-100.0); Mean Platelet Volume 10.3 fL (9.4-12.4); Red Blood Count 3.47 M/mcL (4.19-5.50); Red Cell Distribution Width 14.7 % (11.5-14.5)
[2021-08-06 09:18] LABS: White Blood Count 34.5 K/mcL (4.3-11.1)
[2021-08-06 10:06] LABS: BUN/Creatinine Ratio 40 (6-26); Blood Urea Nitrogen 21 mg/dL (8-23); Calcium 9.2 mg/dL (8.6-10.3); Carbon Dioxide 31 mEq/L (23-29); Chloride 100 mEq/L (98-107); Glucose 147 mg/dL (70-105); Osmolality,Calculated 292 (280-300); Potassium 3.5 mEq/L (3.5-5.1); Sodium 138 mEq/L (136-145); eGFR For African Americans > 60 (> 60); eGFR For Non-African Americans > 60 (> 60)
[2021-08-06 10:07] LABS: Eosinophils # 0.7 K/mcL (0.0-0.6); Lymphocytes # 0.7 K/mcL (0.6-4.6); Monocytes # 0.7 K/mcL (0.0-1.3); Neutrophils # 32.4 K/mcL (1.6-8.9); Platelet Estimate Normal (Normal)
[2021-08-06] MEDS: Nitroglycerin 0.4 MG TAB.SUBL SL PRN (13:54)
[2021-08-06] MEDS ORDERED: Morphine Sulfate 2 MG/ML SYRINGE IVP ONE (21:23)
[2021-08-07] MEDS: Ipratropium/Albuterol Neb 3 ML IH SCH ×7 (00:10→22:59)
[2021-08-07 01:25] LABS: Nucleated Red Blood Cells 0.1 /100 WBC (0); Red Cell Distribution Width 14.8 % (11.5-14.5)
[2021-08-07 01:27] LABS: Hematocrit 29.4 % (37.5-50.1); Hemoglobin 9.2 g/dL (12.9-16.9); Mean Corpuscular HGB Conc 31.3 g/dL (31.6-35.5); Mean Corpuscular Hemoglobin 28.9 pg (28.0-33.3); Mean Corpuscular Volume 92.5 fL (83.0-100.0); Mean Platelet Volume 10.6 fL (9.4-12.4); Platelet Count 301 K/mcL (140-400); Red Blood Count 3.18 M/mcL (4.19-5.50)
[2021-08-07 01:34] LABS: White Blood Count 31.8 K/mcL (4.3-11.1)
[2021-08-07 01:47] LABS: BUN/Creatinine Ratio 35 (6-26); Blood Urea Nitrogen 18 mg/dL (8-23); Calcium 8.4 mg/dL (8.6-10.3); Carbon Dioxide 34 mEq/L (23-29); Chloride 100 mEq/L (98-107); Glucose 96 mg/dL (70-105); Osmolality,Calculated 290 (280-300); Potassium 3.4 mEq/L (3.5-5.1); Sodium 139 mEq/L (136-145); eGFR For African Americans > 60 (> 60); eGFR For Non-African Americans > 60 (> 60)
[2021-08-07 01:49] LABS: Lymphocytes # 0.3 K/mcL (0.6-4.6); Monocytes # 0.3 K/mcL (0.0-1.3); Neutrophils # 31.2 K/mcL (1.6-8.9); Platelet Estimate Normal (Normal)
[2021-08-07] MEDS: MetroNIDAZOLE 500 MG/100 ML 500 MG/100 ML BAG IVPB SCH ×3 (02:52→17:42)
[2021-08-07] MEDS ORDERED: Morphine Sulfate 2 MG/ML SYRINGE IVP ONE (03:13)
[2021-08-07] MEDS: Morphine Sulfate 2 MG/ML SYRINGE IVP PRN (03:23)
[2021-08-07] MEDS: *HR* Enoxaparin 40 MG/0.4 ML SYRINGE SQ SCH (05:46)
[2021-08-07] MEDS: Budesonide/Formoterol 160/4.5 1 PUFF INH IH SCH ×2 (07:19→19:47)
[2021-08-07] MEDS: Azithromycin 500 MG in 0.9 % Sodium Chloride 250 ML IVPB SCH (08:21)
[2021-08-07] MEDS: predniSONE 10 MG TABLET PO SCH (08:21)
[2021-08-07] MEDS: Aspirin Enteric Coated 81 MG Tablet PO SCH (08:21)
[2021-08-07] MEDS: Metoprolol XL (24 HR) Succ 25 MG TAB.ER.24H PO SCH (08:22)
[2021-08-07] MEDS: *HR* OxyCODONE/APAP 7.5/325 TABLET PO PRN ×2 (08:26→17:41)
[2021-08-07] MEDS: cefTRIAXone 2,000 MG in 0.9 % Sodium Chloride Mini Bag 100 ML IVPB SCH (09:50)
[2021-08-07] MEDS ORDERED: MethylPREDNISolone 40 MG/ML VIAL IVP SCH (16:00)
[2021-08-07] MEDS: Cefepime HCl 2,000 MG in Water for inj. (sterile) 20 ML IVP SCH (17:41)
[2021-08-07] MEDS: MethylPREDNISolone 40 MG/ML VIAL IVP SCH (17:41)
[2021-08-07 17:53] LABS: VBG HCO3 34 mEq/L (21-27); VBG PCO2 65 mmHg (41-51); VBG PH 7.33 pH Units (7.32-7.42); VBG PO2 94 mmHg (25-50)
[2021-08-08] MEDS: MethylPREDNISolone 40 MG/ML VIAL IVP SCH ×3 (00:20→16:59)
[2021-08-08] MEDS: Cefepime HCl 2,000 MG in Water for inj. (sterile) 20 ML IVP SCH ×3 (00:24→20:28)
[2021-08-08] MEDS: MetroNIDAZOLE 500 MG/100 ML 500 MG/100 ML BAG IVPB SCH ×3 (02:16→18:16)
[2021-08-08 02:34] LABS: BUN/Creatinine Ratio 41 (6-26); Blood Urea Nitrogen 20 mg/dL (8-23); Carbon Dioxide 33 mEq/L (23-29); Chloride 100 mEq/L (98-107); Glucose 112 mg/dL (70-105); Osmolality,Calculated 291 (280-300); Potassium 3.9 mEq/L (3.5-5.1); Sodium 139 mEq/L (136-145); eGFR For African Americans > 60 (> 60); eGFR For Non-African Americans > 60 (> 60)
[2021-08-08 02:53] LABS: Hemoglobin 9.3 g/dL (12.9-16.9)
[2021-08-08 02:54] LABS: Hematocrit 31.1 % (37.5-50.1); Mean Corpuscular HGB Conc 29.9 g/dL (31.6-35.5); Mean Corpuscular Hemoglobin 28.2 pg (28.0-33.3); Mean Corpuscular Volume 94.2 fL (83.0-100.0); Platelet Count 298 K/mcL (140-400); Red Cell Distribution Width 15.2 % (11.5-14.5)
[2021-08-08 03:11] LABS: White Blood Count 34.4 K/mcL (4.3-11.1)
[2021-08-08] MEDS: Ipratropium/Albuterol Neb 3 ML IH SCH ×6 (03:38→23:14)
[2021-08-08] MEDS: *HR* Enoxaparin 40 MG/0.4 ML SYRINGE SQ SCH (06:18)
[2021-08-08 07:28] LABS: Lymphocytes # 1.4 K/mcL (0.6-4.6); Platelet Estimate Normal (Normal)
[2021-08-08] MEDS: Budesonide/Formoterol 160/4.5 1 PUFF INH IH SCH ×2 (07:36→19:25)
[2021-08-08] MEDS: *HR* OxyCODONE/APAP 7.5/325 TABLET PO PRN ×3 (08:15→18:26)
[2021-08-08] MEDS: Aspirin Enteric Coated 81 MG Tablet PO SCH (08:16)
[2021-08-08] MEDS: Metoprolol XL (24 HR) Succ 25 MG TAB.ER.24H PO SCH (08:16)
[2021-08-08] MEDS: Azithromycin 500 MG in 0.9 % Sodium Chloride 250 ML IVPB SCH (10:25)
[2021-08-08] MEDS ORDERED: Water for inj. (sterile) 10 ML ONE (18:35)
[2021-08-09 01:41] LABS: Basophils # 0.1 K/mcL (0.0-0.2); Basophils % 0.3 %; Hematocrit 29.9 % (37.5-50.1); Hemoglobin 8.9 g/dL (12.9-16.9); Immature Granulocytes % 2.8 % (0-4); Lymphocytes # 0.2 K/mcL (0.6-4.6); Lymphocytes % 0.8 %; Mean Corpuscular HGB Conc 29.8 g/dL (31.6-35.5); Mean Corpuscular Hemoglobin 28.2 pg (28.0-33.3); Mean Corpuscular Volume 94.6 fL (83.0-100.0); Mean Platelet Volume 10.9 fL (9.4-12.4); Monocytes # 1.2 K/mcL (0.0-1.3); Monocytes % 4.2 %; Neutrophils # 25.5 K/mcL (1.6-8.9); Platelet Count 311 K/mcL (140-400); Red Blood Count 3.16 M/mcL (4.19-5.50); Red Cell Distribution Width 15.4 % (11.5-14.5); Segmented Neutrophils % 91.9 %; White Blood Count 27.7 K/mcL (4.3-11.1)
[2021-08-09] MEDS: *HR* OxyCODONE/APAP 7.5/325 TABLET PO PRN ×4 (01:42→21:07)
[2021-08-09] MEDS: MethylPREDNISolone 40 MG/ML VIAL IVP SCH ×3 (01:44→15:25)
[2021-08-09 01:53] LABS: BUN/Creatinine Ratio 60 (6-26); Blood Urea Nitrogen 29 mg/dL (8-23); Calcium 8.5 mg/dL (8.6-10.3); Carbon Dioxide 35 mEq/L (23-29); Chloride 104 mEq/L (98-107); Glucose 144 mg/dL (70-105); Osmolality,Calculated 302 (280-300); Potassium 4.1 mEq/L (3.5-5.1); Sodium 142 mEq/L (136-145); Vancomycin,Trough 12 mcg/mL (5-10); eGFR For African Americans > 60 (> 60); eGFR For Non-African Americans > 60 (> 60)
[2021-08-09] MEDS: Cefepime HCl 2,000 MG in Water for inj. (sterile) 20 ML IVP SCH ×3 (01:54→15:26)
[2021-08-09 02:02] LABS: Anisocytosis 1+ (Not Present); Large Platelets Present (Not Present); Platelet Estimate Normal (Normal)
[2021-08-09] MEDS: Ipratropium/Albuterol Neb 3 ML IH SCH ×6 (03:47→23:10)
[2021-08-09] MEDS: *HR* Enoxaparin 40 MG/0.4 ML SYRINGE SQ SCH (05:32)
[2021-08-09] MEDS: MetroNIDAZOLE 500 MG/100 ML 500 MG/100 ML BAG IVPB SCH ×3 (05:32→20:53)
[2021-08-09] MEDS ORDERED: MetroNIDAZOLE 500 MG/100 ML 500 MG/100 ML BAG IVPB SCH (06:00)
[2021-08-09] MEDS: Budesonide/Formoterol 160/4.5 1 PUFF INH IH SCH ×2 (07:35→19:47)
[2021-08-09] MEDS: Azithromycin 500 MG in 0.9 % Sodium Chloride 250 ML IVPB SCH (07:55)
[2021-08-09] MEDS: Metoprolol XL (24 HR) Succ 25 MG TAB.ER.24H PO SCH (07:57)
[2021-08-09] MEDS: Aspirin Enteric Coated 81 MG Tablet PO SCH (07:57)
[2021-08-09] MEDS: Nitroglycerin 0.4 MG TAB.SUBL SL PRN ×2 (08:14→08:20)
[2021-08-10] MEDS: MethylPREDNISolone 40 MG/ML VIAL IVP SCH ×2 (00:39→08:34)
[2021-08-10] MEDS: Cefepime HCl 2,000 MG in Water for inj. (sterile) 20 ML IVP SCH ×2 (00:40→08:44)
[2021-08-10] MEDS: *HR* OxyCODONE/APAP 7.5/325 TABLET PO PRN ×4 (03:15→18:19)
[2021-08-10] MEDS: Ipratropium/Albuterol Neb 3 ML IH SCH ×6 (03:44→23:27)
[2021-08-10] MEDS: MetroNIDAZOLE 500 MG/100 ML 500 MG/100 ML BAG IVPB SCH (04:57)
[2021-08-10] MEDS: *HR* Enoxaparin 40 MG/0.4 ML SYRINGE SQ SCH (04:57)
[2021-08-10] MEDS: Budesonide/Formoterol 160/4.5 1 PUFF INH IH SCH ×2 (07:28→19:46)
[2021-08-10] MEDS: Metoprolol XL (24 HR) Succ 25 MG TAB.ER.24H PO SCH (08:34)
[2021-08-10] MEDS: Aspirin Enteric Coated 81 MG Tablet PO SCH (08:34)
[2021-08-10] MEDS: Azithromycin 500 MG in 0.9 % Sodium Chloride 250 ML IVPB SCH (08:44)
[2021-08-10 08:46] LABS: Nucleated Red Blood Cells 0.1 /100 WBC (0); Segmented Neutrophils % 89.8 %
[2021-08-10 08:47] LABS: Basophils % 0.2 %; Hematocrit 30.3 % (37.5-50.1); Hemoglobin 9.2 g/dL (12.9-16.9); Lymphocytes # 0.2 K/mcL (0.6-4.6); Lymphocytes % 1.1 %; Mean Corpuscular HGB Conc 30.4 g/dL (31.6-35.5); Mean Corpuscular Hemoglobin 28.9 pg (28.0-33.3); Mean Corpuscular Volume 95.3 fL (83.0-100.0); Mean Platelet Volume 10.6 fL (9.4-12.4); Monocytes # 0.8 K/mcL (0.0-1.3); Monocytes % 3.9 %; Neutrophils # 19.1 K/mcL (1.6-8.9); Platelet Count 348 K/mcL (140-400); Red Blood Count 3.18 M/mcL (4.19-5.50); Red Cell Distribution Width 15.5 % (11.5-14.5); White Blood Count 21.3 K/mcL (4.3-11.1)
[2021-08-10 09:02] LABS: BUN/Creatinine Ratio 69 (6-26); Blood Urea Nitrogen 33 mg/dL (8-23); Calcium 8.9 mg/dL (8.6-10.3); Carbon Dioxide 38 mEq/L (23-29); Chloride 104 mEq/L (98-107); Glucose 145 mg/dL (70-105); Osmolality,Calculated 304 (280-300); Potassium 4.3 mEq/L (3.5-5.1); Sodium 142 mEq/L (136-145); eGFR For African Americans > 60 (> 60); eGFR For Non-African Americans > 60 (> 60)
[2021-08-10] MEDS: levoFLOXacin 750 MG TABLET PO SCH (10:05)
[2021-08-10] MEDS: Doxycycline 100 MG CAPSULE PO SCH ×2 (10:05→20:49)
[2021-08-11] MEDS: *HR* OxyCODONE/APAP 7.5/325 TABLET PO PRN ×5 (01:17→21:37)
[2021-08-11] MEDS ORDERED: MethylPREDNISolone 40 MG/ML VIAL IVP ONE (02:16)
[2021-08-11] MEDS: Ipratropium/Albuterol Neb 3 ML IH SCH ×6 (03:52→22:41)
[2021-08-11] MEDS: *HR* Enoxaparin 40 MG/0.4 ML SYRINGE SQ SCH (04:53)
[2021-08-11 05:26] LABS: Hematocrit 30.1 % (37.5-50.1); Hemoglobin 9.2 g/dL (12.9-16.9); Mean Corpuscular HGB Conc 30.6 g/dL (31.6-35.5); Mean Corpuscular Hemoglobin 28.6 pg (28.0-33.3); Mean Corpuscular Volume 93.5 fL (83.0-100.0); Mean Platelet Volume 10.7 fL (9.4-12.4); Nucleated Red Blood Cells 0.1 /100 WBC (0); Platelet Count 423 K/mcL (140-400); Red Blood Count 3.22 M/mcL (4.19-5.50); Red Cell Distribution Width 15.4 % (11.5-14.5)
[2021-08-11 05:28] LABS: BUN/Creatinine Ratio 64 (6-26); Blood Urea Nitrogen 29 mg/dL (8-23); Calcium 8.8 mg/dL (8.6-10.3); Carbon Dioxide 37 mEq/L (23-29); Chloride 103 mEq/L (98-107); Glucose 107 mg/dL (70-105); Osmolality,Calculated 304 (280-300); Potassium 4.3 mEq/L (3.5-5.1); Sodium 144 mEq/L (136-145); eGFR For African Americans > 60 (> 60); eGFR For Non-African Americans > 60 (> 60)
[2021-08-11 05:37] LABS: White Blood Count 31.4 K/mcL (4.3-11.1)
[2021-08-11 06:02] LABS: Anisocytosis 1+ (Not Present); Neutrophils # 29.5 K/mcL (1.6-8.9); Platelet Estimate Normal (Normal); Toxic Granulation Present (Not Present)
[2021-08-11] MEDS: Doxycycline 100 MG CAPSULE PO SCH (07:52)
[2021-08-11] MEDS: Metoprolol XL (24 HR) Succ 25 MG TAB.ER.24H PO SCH (07:52)
[2021-08-11] MEDS: levoFLOXacin 750 MG TABLET PO SCH (07:52)
[2021-08-11] MEDS: Aspirin Enteric Coated 81 MG Tablet PO SCH (07:52)
[2021-08-11] MEDS: Budesonide/Formoterol 160/4.5 1 PUFF INH IH SCH ×2 (08:23→20:05)
[2021-08-11] MEDS ORDERED: predniSONE 20 MG TABLET PO SCH (09:00)
[2021-08-11] MEDS: Azithromycin 500 MG in 0.9 % Sodium Chloride 250 ML IVPB SCH (11:25)
[2021-08-11] MEDS: Cefepime HCl 2,000 MG in Water for inj. (sterile) 20 ML IVP SCH (17:04)
[2021-08-11] MEDS: MetroNIDAZOLE 500 MG/100 ML 500 MG/100 ML BAG IVPB SCH (17:05)
[2021-08-11] MEDS: Melatonin 3 MG TABLET PO PRN (21:34)
[2021-08-12] MEDS: Cefepime HCl 2,000 MG in Water for inj. (sterile) 20 ML IVP SCH ×4 (00:10→23:35)
[2021-08-12] MEDS: MetroNIDAZOLE 500 MG/100 ML 500 MG/100 ML BAG IVPB SCH ×4 (00:13→23:36)
[2021-08-12] MEDS: *HR* OxyCODONE/APAP 7.5/325 TABLET PO PRN ×4 (02:14→19:45)
[2021-08-12] MEDS: Ipratropium/Albuterol Neb 3 ML IH SCH ×5 (04:55→19:58)
[2021-08-12] MEDS: *HR* Enoxaparin 40 MG/0.4 ML SYRINGE SQ SCH (05:03)
[2021-08-12 05:50] LABS: INR 1.1; Prothrombin Time 11.9 Seconds (9.4-12.1)
[2021-08-12 05:54] LABS: Hematocrit 27.9 % (37.5-50.1); Hemoglobin 8.5 g/dL (12.9-16.9); Mean Corpuscular HGB Conc 30.5 g/dL (31.6-35.5); Mean Corpuscular Hemoglobin 28.4 pg (28.0-33.3); Mean Corpuscular Volume 93.3 fL (83.0-100.0); Nucleated Red Blood Cells 0.1 /100 WBC (0); Platelet Count 462 K/mcL (140-400); Red Blood Count 2.99 M/mcL (4.19-5.50); Red Cell Distribution Width 15.5 % (11.5-14.5)
[2021-08-12 06:13] LABS: Blood Urea Nitrogen 25 mg/dL (8-23); Carbon Dioxide 37 mEq/L (23-29); Chloride 102 mEq/L (98-107); Potassium 3.9 mEq/L (3.5-5.1); Sodium 143 mEq/L (136-145)
[2021-08-12 06:14] LABS: Calcium 8.4 mg/dL (8.6-10.3); Glucose 86 mg/dL (70-105); Osmolality,Calculated 300 (280-300)
[2021-08-12 06:18] LABS: White Blood Count 31.6 K/mcL (4.3-11.1)
[2021-08-12 06:27] LABS: Anisocytosis 1+ (Not Present); Lymphocytes # 0.6 K/mcL (0.6-4.6); Monocytes # 0.6 K/mcL (0.0-1.3); Neutrophils # 28.4 K/mcL (1.6-8.9)
[2021-08-12] MEDS: Aspirin Enteric Coated 81 MG Tablet PO SCH (07:49)
[2021-08-12] MEDS: Metoprolol XL (24 HR) Succ 25 MG TAB.ER.24H PO SCH (07:50)
[2021-08-12] MEDS: Budesonide/Formoterol 160/4.5 1 PUFF INH IH SCH (07:55)
[2021-08-12 08:27] LABS: BUN/Creatinine Ratio 57 (6-26); eGFR For African Americans > 60 (> 60); eGFR For Non-African Americans > 60 (> 60)
[2021-08-12] MEDS ORDERED: E-Z-HD (BARIUM SULF) SUSPENSION PO ONE (10:08)
[2021-08-12] MEDS ORDERED: E-Z-PAQUE (BARIUM SULF) SUSP 1 BOTTLE PO ONE (10:08)
[2021-08-12] MEDS: Azithromycin 500 MG in 0.9 % Sodium Chloride 250 ML IVPB SCH (11:28)
[2021-08-12 13:15] LABS: Adenovirus F 40/41 PCR Not detected (Not detect); Astrovirus PCR Not detected (Not detect); C.difficile Toxin A/B Gene PCR Not detected (Not detect); Campylobacter by PCR Not detected (Not detect); Cryptosporidium by PCR Not detected (Not detect); Cyclospora cayetanensis PCR Not detected (Not detect); E. coli O157 by PCR Not detected (Not detect); Entamoeba histolytica PCR Not detected (Not detect); Enteroaggregative E.coli(EAEC) Not detected (Not detect); Enteropathogenic E.coli(EPEC) Not detected (Not detect); Enterotoxigenic E.coli (ETEC) Not detected (Not detect); Giardia lamblia PCR Not detected (Not detect); Norovirus GI/GII PCR Not detected (Not detect); Plesiomonas shigelloides PCR Not detected (Not detect); Rotavirus A PCR Not detected (Not detect); Salmonella PCR Not detected (Not detect); Sapovirus PCR Not detected (Not detect); Shig/EnteroinvasiveE coli EIEC Not detected (Not detect); Shigalike tox-prod E coli STEC Not detected (Not detect); Vibrio PCR Not detected (Not detect); Vibrio cholerae PCR Not detected (Not detect); Yersinia enterocolitica PCR Not detected (Not detect)
[2021-08-12] MEDS: Doxycycline 100 MG in 0.9 % Sodium Chloride Mini Bag 100 ML IVPB SCH (19:00)
[2021-08-12] MEDS: Lactobacillus 1 EACH CAP.SPRINK PO SCH (19:33)
[2021-08-12] MEDS: Melatonin 3 MG TABLET PO PRN (23:36)
[2021-08-13] MEDS: Ipratropium/Albuterol Neb 3 ML IH SCH ×7 (00:15→23:40)
[2021-08-13] MEDS: *HR* OxyCODONE/APAP 7.5/325 TABLET PO PRN ×4 (01:07→22:23)
[2021-08-13 04:55] LABS: Hemoglobin 8.5 g/dL (12.9-16.9)
[2021-08-13 04:57] LABS: Basophils # 0.1 K/mcL (0.0-0.2); Basophils % 0.3 %; Eosinophils % 0.4 %; Hematocrit 28.4 % (37.5-50.1); Immature Granulocytes % 4.1 % (0-4); Lymphocytes % 1.8 %; Mean Corpuscular HGB Conc 29.9 g/dL (31.6-35.5); Mean Corpuscular Hemoglobin 28.1 pg (28.0-33.3); Mean Platelet Volume 10.9 fL (9.4-12.4); Monocytes # 1.3 K/mcL (0.0-1.3); Monocytes % 3.6 %; Neutrophils # 32.5 K/mcL (1.6-8.9); Platelet Count 450 K/mcL (140-400); Red Blood Count 3.02 M/mcL (4.19-5.50); Red Cell Distribution Width 15.5 % (11.5-14.5); Segmented Neutrophils % 89.8 %
[2021-08-13 05:02] LABS: Eosinophils # 0.1 K/mcL (0.0-0.6); Lymphocytes # 0.7 K/mcL (0.6-4.6)
[2021-08-13 05:03] LABS: White Blood Count 36.2 K/mcL (4.3-11.1)
[2021-08-13 05:14] LABS: BUN/Creatinine Ratio 51 (6-26); Blood Urea Nitrogen 19 mg/dL (8-23); Calcium 8.3 mg/dL (8.6-10.3); Carbon Dioxide 37 mEq/L (23-29); Chloride 102 mEq/L (98-107); Glucose 85 mg/dL (70-105); Osmolality,Calculated 296 (280-300); Potassium 3.7 mEq/L (3.5-5.1); Sodium 142 mEq/L (136-145); eGFR For African Americans > 60 (> 60); eGFR For Non-African Americans > 60 (> 60)
[2021-08-13] MEDS: Doxycycline 100 MG in 0.9 % Sodium Chloride Mini Bag 100 ML IVPB SCH ×2 (05:16→17:01)
[2021-08-13] MEDS: *HR* Enoxaparin 40 MG/0.4 ML SYRINGE SQ SCH (05:17)
[2021-08-13 05:18] LABS: Platelet Estimate Normal (Normal)
[2021-08-13 05:38] LABS: Folate 5.2 ng/mL (3.0-16.0)
[2021-08-13 05:45] LABS: Ferritin 136 ng/mL (20-250); Iron < 10 mcg/dL (65-175); Thyroid Stimulating Hormone 8.461 mcIU/mL (0.340-5.600); Transferrin 150 mg/dL (203-362)
[2021-08-13 05:46] LABS: Vitamin B12 > 1500 pg/mL (250-1100)
[2021-08-13] MEDS: MetroNIDAZOLE 500 MG/100 ML 500 MG/100 ML BAG IVPB SCH ×3 (08:18→23:59)
[2021-08-13] MEDS: Lactobacillus 1 EACH CAP.SPRINK PO SCH ×2 (08:20→20:35)
[2021-08-13] MEDS: Aspirin Enteric Coated 81 MG Tablet PO SCH (08:20)
[2021-08-13] MEDS: Metoprolol XL (24 HR) Succ 25 MG TAB.ER.24H PO SCH (08:20)
[2021-08-13] MEDS: Cefepime HCl 2,000 MG in Water for inj. (sterile) 20 ML IVP SCH ×2 (08:21→17:00)
[2021-08-13] MEDS ORDERED: Isovue-370 500 ML BOTTLE IVP ONE (08:28)
[2021-08-13] MEDS ORDERED: *HR* LORazepam 2 MG/ML VIAL IVP STA (08:34)
[2021-08-13] MEDS ORDERED: 0.9 % Sodium Chloride 1,000 ML IVC SCH (11:45)
[2021-08-13] MEDS: Acetylcysteine 10% 2 ML INHSOL IH SCH ×4 (11:49→23:40)
[2021-08-13 16:53] LABS: RBC,Pleural Fluid < 2000 RBC/mcL
[2021-08-13 17:15] LABS: Glucose,Pleural Fluid 91 mg/dL (No Ref Range); LDH,Pleural Fluid 106 Units/L (No Ref Range); Total Protein,Pleural Fluid < 2.0 g/dL
[2021-08-13 17:45] LABS: Appearance of Pleural Fl Clear (Clear); Basophils,Pleural Fluid 0 %; Eosinophils,Pleural Fluid 0 %
[2021-08-14] MEDS: Acetylcysteine 10% 2 ML INHSOL IH SCH ×6 (03:50→23:03)
[2021-08-14] MEDS: Ipratropium/Albuterol Neb 3 ML IH SCH ×6 (03:50→23:03)
[2021-08-14 03:56] LABS: Immature Granulocytes % 3.9 % (0-4)
[2021-08-14 03:58] LABS: Basophils # 0.1 K/mcL (0.0-0.2); Basophils % 0.3 %; Eosinophils # 0.4 K/mcL (0.0-0.6); Hematocrit 28.4 % (37.5-50.1); Hemoglobin 8.1 g/dL (12.9-16.9); Lymphocytes # 0.6 K/mcL (0.6-4.6); Lymphocytes % 1.7 %; Mean Corpuscular HGB Conc 28.5 g/dL (31.6-35.5); Mean Corpuscular Hemoglobin 27.7 pg (28.0-33.3); Mean Corpuscular Volume 97.3 fL (83.0-100.0); Mean Platelet Volume 11.5 fL (9.4-12.4); Monocytes # 1.3 K/mcL (0.0-1.3); Monocytes % 3.7 %; Neutrophils # 30.8 K/mcL (1.6-8.9); Nucleated Red Blood Cells 0.1 /100 WBC (0); Platelet Count 322 K/mcL (140-400); Red Blood Count 2.92 M/mcL (4.19-5.50); Red Cell Distribution Width 15.8 % (11.5-14.5); Segmented Neutrophils % 89.4 %
[2021-08-14 04:05] LABS: White Blood Count 34.5 K/mcL (4.3-11.1)
[2021-08-14 04:36] LABS: BUN/Creatinine Ratio 50 (6-26); Blood Urea Nitrogen 12 mg/dL (8-23); Calcium 7.4 mg/dL (8.6-10.3); Carbon Dioxide 30 mEq/L (23-29); Chloride 105 mEq/L (98-107); Glucose 103 mg/dL (70-105); Magnesium 1.9 mg/dL (1.6-2.6); Osmolality,Calculated 292 (280-300); Potassium 3.8 mEq/L (3.5-5.1); Sodium 141 mEq/L (136-145); eGFR For African Americans > 60 (> 60); eGFR For Non-African Americans > 60 (> 60)
[2021-08-14 04:50] LABS: Platelet Estimate Normal (Normal)
[2021-08-14 04:51] LABS: Hypochromasia Present (Not Present)
[2021-08-14] MEDS: *HR* Enoxaparin 40 MG/0.4 ML SYRINGE SQ SCH (05:19)
[2021-08-14] MEDS: Doxycycline 100 MG in 0.9 % Sodium Chloride Mini Bag 100 ML IVPB SCH ×2 (05:20→19:02)
[2021-08-14] MEDS: *HR* OxyCODONE/APAP 7.5/325 TABLET PO PRN ×4 (05:21→22:53)
[2021-08-14] MEDS: MetroNIDAZOLE 500 MG/100 ML 500 MG/100 ML BAG IVPB SCH ×2 (09:48→17:10)
[2021-08-14] MEDS: Metoprolol XL (24 HR) Succ 25 MG TAB.ER.24H PO SCH (09:49)
[2021-08-14] MEDS: Aspirin Enteric Coated 81 MG Tablet PO SCH (09:49)
[2021-08-14] MEDS: Lactobacillus 1 EACH CAP.SPRINK PO SCH ×2 (09:49→20:51)
[2021-08-14] MEDS: Cefepime HCl 2,000 MG in Water for inj. (sterile) 20 ML IVP SCH ×3 (10:21→17:18)
[2021-08-14] MEDS ORDERED: Ondansetron 4 MG/2 ML VIAL ONE (13:19)
[2021-08-14] MEDS ORDERED: Lidocaine -MPF 2% 5 ML VIAL ONE (13:19)
[2021-08-14] MEDS ORDERED: Lidocaine HCL 4 ML Topical Solution (Laryng-O-Jet Kit Sterile Pak) TP ONE (13:19)
[2021-08-14] MEDS ORDERED: *HR* FentaNYL (PF) 100 MCG/2 ML VIAL ONE (13:19)
[2021-08-14] MEDS: 0.9 % Sodium Chloride 1,000 ML IVC SCH (22:34)
[2021-08-14] MEDS: Melatonin 3 MG TABLET PO PRN (22:53)
[2021-08-15] MEDS: Cefepime HCl 2,000 MG in Water for inj. (sterile) 20 ML IVP SCH ×4 (00:43→23:30)
[2021-08-15] MEDS: MetroNIDAZOLE 500 MG/100 ML 500 MG/100 ML BAG IVPB SCH ×4 (00:43→23:31)
[2021-08-15 01:29] LABS: Appearance of Body Fluid Cloudy (Clear)
[2021-08-15 01:32] LABS: Volume of Body Fluid 13 mL
[2021-08-15 01:45] LABS: Appearance of Body Fluid Cloudy (Clear)
[2021-08-15 01:46] LABS: Volume of Body Fluid 16 mL
[2021-08-15] MEDS: Acetylcysteine 10% 2 ML INHSOL IH SCH ×6 (03:41→23:51)
[2021-08-15] MEDS: Ipratropium/Albuterol Neb 3 ML IH SCH ×6 (03:41→23:51)
[2021-08-15 05:42] LABS: Lymphocytes % 1.9 %; Monocytes % 4.8 %
[2021-08-15 05:43] LABS: Basophils # 0.1 K/mcL (0.0-0.2); Basophils % 0.2 %; Eosinophils # 0.5 K/mcL (0.0-0.6); Eosinophils % 1.4 %; Hematocrit 28.8 % (37.5-50.1); Hemoglobin 8.4 g/dL (12.9-16.9); Immature Granulocytes % 3.2 % (0-4); Lymphocytes # 0.7 K/mcL (0.6-4.6); Mean Corpuscular HGB Conc 29.2 g/dL (31.6-35.5); Mean Corpuscular Hemoglobin 27.8 pg (28.0-33.3); Mean Corpuscular Volume 95.4 fL (83.0-100.0); Neutrophils # 32.1 K/mcL (1.6-8.9); Platelet Count 484 K/mcL (140-400); Red Blood Count 3.02 M/mcL (4.19-5.50); Red Cell Distribution Width 15.9 % (11.5-14.5); Segmented Neutrophils % 88.5 %
[2021-08-15] MEDS: *HR* Enoxaparin 40 MG/0.4 ML SYRINGE SQ SCH (05:44)
[2021-08-15] MEDS: Doxycycline 100 MG in 0.9 % Sodium Chloride Mini Bag 100 ML IVPB SCH ×2 (05:45→18:32)
[2021-08-15 05:59] LABS: BUN/Creatinine Ratio 35 (6-26); Blood Urea Nitrogen 13 mg/dL (8-23); Calcium 7.8 mg/dL (8.6-10.3); Carbon Dioxide 34 mEq/L (23-29); Chloride 104 mEq/L (98-107); Glucose 78 mg/dL (70-105); Osmolality,Calculated 291 (280-300); Potassium 3.7 mEq/L (3.5-5.1); Sodium 141 mEq/L (136-145); eGFR For African Americans > 60 (> 60); eGFR For Non-African Americans > 60 (> 60)
[2021-08-15 06:13] LABS: Monocytes # 1.7 K/mcL (0.0-1.3); White Blood Count 36.3 K/mcL (4.3-11.1)
[2021-08-15 06:16] LABS: Large Platelets Present (Not Present); Platelet Estimate Increased (Normal)
[2021-08-15] MEDS: *HR* OxyCODONE/APAP 7.5/325 TABLET PO PRN ×4 (06:44→19:54)
[2021-08-15] MEDS: Metoprolol XL (24 HR) Succ 25 MG TAB.ER.24H PO SCH (08:15)
[2021-08-15] MEDS: Lactobacillus 1 EACH CAP.SPRINK PO SCH ×2 (08:15→19:52)
[2021-08-15] MEDS: Aspirin Enteric Coated 81 MG Tablet PO SCH (08:17)
[2021-08-15] MEDS: 0.9 % Sodium Chloride 1,000 ML IVC SCH (18:32)
[2021-08-15] MEDS: Melatonin 3 MG TABLET PO PRN (23:44)
[2021-08-16] MEDS: *HR* OxyCODONE/APAP 7.5/325 TABLET PO PRN ×4 (00:12→20:39)
[2021-08-16] MEDS: Acetylcysteine 10% 2 ML INHSOL IH SCH ×5 (04:52→20:17)
[2021-08-16] MEDS: Ipratropium/Albuterol Neb 3 ML IH SCH ×5 (04:52→20:17)
[2021-08-16] MEDS: *HR* Enoxaparin 40 MG/0.4 ML SYRINGE SQ SCH (05:31)
[2021-08-16] MEDS: Doxycycline 100 MG in 0.9 % Sodium Chloride Mini Bag 100 ML IVPB SCH ×2 (05:31→17:53)
[2021-08-16] MEDS: MetroNIDAZOLE 500 MG/100 ML 500 MG/100 ML BAG IVPB SCH ×2 (09:00→17:52)
[2021-08-16] MEDS: Metoprolol XL (24 HR) Succ 25 MG TAB.ER.24H PO SCH ×2 (09:00→13:21)
[2021-08-16] MEDS: Lactobacillus 1 EACH CAP.SPRINK PO SCH ×2 (09:01→19:42)
[2021-08-16] MEDS: Aspirin Enteric Coated 81 MG Tablet PO SCH (09:01)
[2021-08-16] MEDS: Cefepime HCl 2,000 MG in Water for inj. (sterile) 20 ML IVP SCH ×2 (09:01→17:52)
[2021-08-16] MEDS ORDERED: Perflutren Lipid Microsphere 1.3 ML in 0.9 % Sodium Chloride 8.7 ML IVP PRN (09:35)
[2021-08-16 10:41] LABS: Hemoglobin 9.1 g/dL (12.9-16.9); Mean Corpuscular HGB Conc 30.3 g/dL (31.6-35.5); Mean Corpuscular Hemoglobin 28.8 pg (28.0-33.3); Mean Corpuscular Volume 94.9 fL (83.0-100.0); Mean Platelet Volume 10.5 fL (9.4-12.4); Platelet Count 599 K/mcL (140-400); Red Blood Count 3.16 M/mcL (4.19-5.50); Red Cell Distribution Width 15.4 % (11.5-14.5)
[2021-08-16 10:45] LABS: White Blood Count 34.7 K/mcL (4.3-11.1)
[2021-08-16 10:54] LABS: BUN/Creatinine Ratio 35 (6-26); Blood Urea Nitrogen 12 mg/dL (8-23); Calcium 7.9 mg/dL (8.6-10.3); Carbon Dioxide 33 mEq/L (23-29); Chloride 103 mEq/L (98-107); Glucose 81 mg/dL (70-105); Magnesium 1.8 mg/dL (1.6-2.6); Osmolality,Calculated 291 (280-300); Potassium 3.7 mEq/L (3.5-5.1); Sodium 141 mEq/L (136-145); eGFR For African Americans > 60 (> 60); eGFR For Non-African Americans > 60 (> 60)
[2021-08-16 11:18] LABS: ABG Base Excess 5 mEq/L (-2 to 3); ABG HCO3 34 mEq/L (21-27); ABG Oxygen Saturation 92 % (95-98); ABG PCO2 64 mmHg (35-45); ABG PH 7.33 pH Units (7.32-7.45); ABG PO2 69 mmHg (85-104); ABG TCO2 36 mEq/L (20-26)
[2021-08-16 11:36] LABS: Adenovirus Not Detected (Not Detect); Bordetella Pertussis Not Detected (Not Detect); Chlamydophila pneumoniae Not Detected (Not Detect); Coronavirus 229E Not Detected (Not Detect); Coronavirus HKU1 Not Detected (Not Detect); Coronavirus NL63 Not Detected (Not Detect); Coronavirus OC43 Not Detected (Not Detect); Human Metapneumovirus Not Detected (Not Detect); Human Rhinovirus/Enterovirus Not Detected (Not Detect); Influenza A Subtype 2009 H1 Not Detected (Not Detect); Influenza B Not Detected (Not Detect); Mycoplasma pneumoniae Not Detected (Not Detect); Parainfluenza Virus 1 Not Detected (Not Detect); Parainfluenza Virus 2 Not Detected (Not Detect); Parainfluenza Virus 3 Not Detected (Not Detect); Parainfluenza Virus 4 Not Detected (Not Detect); Respiratory Syncytial Virus Not Detected (Not Detect); SARS-CoV-2 Not Detected (Not Detect)
[2021-08-16] MEDS: Iron Sucrose Complex 200 MG in 0.9 % Sodium Chloride 100 ML IVPB SCH (13:32)
[2021-08-16] MEDS: 0.9 % Sodium Chloride 1,000 ML IVC SCH (13:33)
[2021-08-16 14:42] LABS: Bilirubin,Urine Negative (Negative); Blood,Urine Large (Negative); Clarity,Urine Turbid (Clear); Color,Urine Yellow (Yellow); Glucose,Urine (UA) Normal (Normal); Ketones,Urine 10 mg/dL (Negative); Leukocyte Esterase,Urine Small (Negative); Mucus,Urine Few per lpf (None-Few); Nitrite,Urine Negative (Negative); Protein,Urine 70 mg/dL (Neg-Trace); RBC,Urine TNTC per hpf (0-3); Specific Gravity,Urine 1.024 (1.010-1.025); Squamous Epithelial Cell,Urine Few per hpf (None-Few); Urobilinogen,Urine Normal (Normal); WBC,Urine TNTC per hpf (0-3)
[2021-08-16] MEDS: MethylPREDNISolone 40 MG/ML VIAL IVP SCH (17:52)
[2021-08-16 23:35] LABS: Fluid Source for Albumin PLEURAL FLUID
[2021-08-17] MEDS: Acetylcysteine 10% 2 ML INHSOL IH SCH ×7 (00:01→23:04)
[2021-08-17] MEDS: Ipratropium/Albuterol Neb 3 ML IH SCH ×7 (00:01→23:04)
[2021-08-17] MEDS: Cefepime HCl 2,000 MG in Water for inj. (sterile) 20 ML IVP SCH ×4 (00:38→22:59)
[2021-08-17] MEDS: MetroNIDAZOLE 500 MG/100 ML 500 MG/100 ML BAG IVPB SCH ×4 (00:38→22:58)
[2021-08-17] MEDS: MethylPREDNISolone 40 MG/ML VIAL IVP SCH ×4 (00:39→23:00)
[2021-08-17] MEDS: *HR* OxyCODONE/APAP 7.5/325 TABLET PO PRN ×4 (02:55→20:21)
[2021-08-17 03:08] LABS: Hemoglobin 8.3 g/dL (12.9-16.9); Mean Platelet Volume 11.8 fL (9.4-12.4); Red Cell Distribution Width 15.7 % (11.5-14.5)
[2021-08-17 03:09] LABS: Hematocrit 29.5 % (37.5-50.1); Mean Corpuscular HGB Conc 28.1 g/dL (31.6-35.5); Mean Corpuscular Hemoglobin 27.9 pg (28.0-33.3); Mean Corpuscular Volume 99.3 fL (83.0-100.0); Platelet Count 427 K/mcL (140-400); Red Blood Count 2.97 M/mcL (4.19-5.50); White Blood Count 29.5 K/mcL (4.3-11.1)
[2021-08-17 03:24] LABS: BUN/Creatinine Ratio 37 (6-26); Blood Urea Nitrogen 14 mg/dL (8-23); Calcium 7.6 mg/dL (8.6-10.3); Carbon Dioxide 29 mEq/L (23-29); Chloride 104 mEq/L (98-107); Glucose 112 mg/dL (70-105); Osmolality,Calculated 289 (280-300); Potassium 4.2 mEq/L (3.5-5.1); Sodium 139 mEq/L (136-145); eGFR For African Americans > 60 (> 60); eGFR For Non-African Americans > 60 (> 60)
[2021-08-17] MEDS: Doxycycline 100 MG in 0.9 % Sodium Chloride Mini Bag 100 ML IVPB SCH ×2 (05:48→18:31)
[2021-08-17] MEDS: *HR* Enoxaparin 40 MG/0.4 ML SYRINGE SQ SCH (05:49)
[2021-08-17] MEDS: Metoprolol XL (24 HR) Succ 25 MG TAB.ER.24H PO SCH ×2 (09:10→09:11)
[2021-08-17] MEDS: Lactobacillus 1 EACH CAP.SPRINK PO SCH ×2 (09:11→20:21)
[2021-08-17] MEDS: Aspirin Enteric Coated 81 MG Tablet PO SCH (09:11)
[2021-08-17] MEDS: Iron Sucrose Complex 200 MG in 0.9 % Sodium Chloride 100 ML IVPB SCH (10:31)
[2021-08-17] MEDS ORDERED: Acetaminophen 325 MG TABLET PO PRN (14:59)
[2021-08-17] MEDS: 0.9 % Sodium Chloride 1,000 ML IVC SCH (20:20)
[2021-08-18] MEDS: *HR* OxyCODONE/APAP 7.5/325 TABLET PO PRN ×4 (00:15→16:08)
[2021-08-18] MEDS: Melatonin 3 MG TABLET PO PRN (00:15)
[2021-08-18] MEDS: Ipratropium/Albuterol Neb 3 ML IH SCH ×6 (03:12→23:58)
[2021-08-18] MEDS: Acetylcysteine 10% 2 ML INHSOL IH SCH ×6 (03:12→23:58)
[2021-08-18] MEDS: Morphine Sulfate 2 MG/ML SYRINGE IVP PRN ×2 (03:39→14:24)
[2021-08-18] MEDS: Doxycycline 100 MG in 0.9 % Sodium Chloride Mini Bag 100 ML IVPB SCH ×2 (04:56→17:35)
[2021-08-18] MEDS: *HR* Enoxaparin 40 MG/0.4 ML SYRINGE SQ SCH (04:56)
[2021-08-18 06:20] LABS: BUN/Creatinine Ratio 51 (6-26); Blood Urea Nitrogen 22 mg/dL (8-23); Calcium 7.9 mg/dL (8.6-10.3); Carbon Dioxide 32 mEq/L (23-29); Chloride 105 mEq/L (98-107); Glucose 176 mg/dL (70-105); Osmolality,Calculated 300 (280-300); Potassium 3.7 mEq/L (3.5-5.1); Sodium 141 mEq/L (136-145); eGFR For African Americans > 60 (> 60); eGFR For Non-African Americans > 60 (> 60)
[2021-08-18] MEDS: Metoprolol XL (24 HR) Succ 25 MG TAB.ER.24H PO SCH ×2 (07:41→07:42)
[2021-08-18] MEDS: Cefepime HCl 2,000 MG in Water for inj. (sterile) 20 ML IVP SCH ×3 (07:42→23:05)
[2021-08-18] MEDS: Aspirin Enteric Coated 81 MG Tablet PO SCH (07:42)
[2021-08-18] MEDS: MethylPREDNISolone 40 MG/ML VIAL IVP SCH ×3 (07:42→23:05)
[2021-08-18] MEDS: Lactobacillus 1 EACH CAP.SPRINK PO SCH ×2 (07:42→20:14)
[2021-08-18] MEDS: MetroNIDAZOLE 500 MG/100 ML 500 MG/100 ML BAG IVPB SCH ×3 (07:43→23:06)
[2021-08-18 07:52] LABS: Mean Platelet Volume 10.9 fL (9.4-12.4); Red Cell Distribution Width 15.5 % (11.5-14.5)
[2021-08-18 07:53] LABS: Hemoglobin 7.8 g/dL (12.9-16.9); Mean Corpuscular Hemoglobin 27.9 pg (28.0-33.3); Mean Corpuscular Volume 92.9 fL (83.0-100.0); Platelet Count 673 K/mcL (140-400)
[2021-08-18 08:09] LABS: White Blood Count 32.5 K/mcL (4.3-11.1)
[2021-08-18] MEDS: Iron Sucrose Complex 200 MG in 0.9 % Sodium Chloride 100 ML IVPB SCH (09:35)
[2021-08-18] MEDS: 0.9 % Sodium Chloride 1,000 ML IVC SCH (19:29)
[2021-08-18] MEDS ORDERED: *HR* OxyCODONE/APAP 7.5/325 TABLET PO ONE (19:55)
[2021-08-19] MEDS: Melatonin 3 MG TABLET PO PRN (00:19)
[2021-08-19] MEDS: 0.9 % Sodium Chloride 1,000 ML IVC SCH (00:19)
[2021-08-19 02:47] LABS: Hemoglobin 7.2 g/dL (12.9-16.9); Mean Corpuscular Hemoglobin 27.9 pg (28.0-33.3); Mean Platelet Volume 10.4 fL (9.4-12.4); Platelet Count 626 K/mcL (140-400); Red Blood Count 2.58 M/mcL (4.19-5.50); Red Cell Distribution Width 15.7 % (11.5-14.5)
[2021-08-19 03:08] LABS: BUN/Creatinine Ratio 74 (6-26); Blood Urea Nitrogen 26 mg/dL (8-23); Calcium 7.8 mg/dL (8.6-10.3); Carbon Dioxide 29 mEq/L (23-29); Chloride 108 mEq/L (98-107); Glucose 128 mg/dL (70-105); Osmolality,Calculated 300 (280-300); Potassium 4.1 mEq/L (3.5-5.1); Sodium 142 mEq/L (136-145); eGFR For African Americans > 60 (> 60); eGFR For Non-African Americans > 60 (> 60)
[2021-08-19] MEDS: Acetylcysteine 10% 2 ML INHSOL IH SCH ×6 (03:43→23:11)
[2021-08-19] MEDS: Ipratropium/Albuterol Neb 3 ML IH SCH ×6 (03:43→23:11)
[2021-08-19] MEDS: Doxycycline 100 MG in 0.9 % Sodium Chloride Mini Bag 100 ML IVPB SCH ×2 (04:40→16:36)
[2021-08-19] MEDS: *HR* OxyCODONE/APAP 7.5/325 TABLET PO PRN ×4 (04:41→20:49)
[2021-08-19] MEDS: *HR* Enoxaparin 40 MG/0.4 ML SYRINGE SQ SCH (04:41)
[2021-08-19] MEDS: Nitroglycerin 0.4 MG TAB.SUBL SL PRN ×3 (07:47→07:59)
[2021-08-19] MEDS: MethylPREDNISolone 40 MG/ML VIAL IVP SCH ×2 (10:22→19:27)
[2021-08-19] MEDS: Aspirin Enteric Coated 81 MG Tablet PO SCH (10:22)
[2021-08-19] MEDS: Lactobacillus 1 EACH CAP.SPRINK PO SCH ×2 (10:22→19:27)
[2021-08-19] MEDS: Metoprolol XL (24 HR) Succ 25 MG TAB.ER.24H PO SCH ×2 (10:22→10:23)
[2021-08-19] MEDS: MetroNIDAZOLE 500 MG/100 ML 500 MG/100 ML BAG IVPB SCH ×3 (10:23→23:56)
[2021-08-19] MEDS: Cefepime HCl 2,000 MG in Water for inj. (sterile) 20 ML IVP SCH ×3 (10:24→23:55)
[2021-08-20] MEDS: *HR* OxyCODONE/APAP 7.5/325 TABLET PO PRN ×2 (01:47→06:27)
[2021-08-20] MEDS: Melatonin 3 MG TABLET PO PRN (01:47)
[2021-08-20 03:07] LABS: Basophils % 0.2 %; Nucleated Red Blood Cells 0.1 /100 WBC (0)
[2021-08-20 03:09] LABS: Basophils # 0.1 K/mcL (0.0-0.2); Hematocrit 23.7 % (37.5-50.1); Hemoglobin 7.2 g/dL (12.9-16.9); Immature Granulocytes % 4.8 % (0-4); Lymphocytes # 0.3 K/mcL (0.6-4.6); Lymphocytes % 1.2 %; Mean Corpuscular HGB Conc 30.4 g/dL (31.6-35.5); Mean Corpuscular Hemoglobin 28.8 pg (28.0-33.3); Mean Corpuscular Volume 94.8 fL (83.0-100.0); Mean Platelet Volume 10.8 fL (9.4-12.4); Platelet Count 602 K/mcL (140-400); Red Cell Distribution Width 15.7 % (11.5-14.5); Segmented Neutrophils % 88.8 %
[2021-08-20 03:16] LABS: Monocytes # 1.4 K/mcL (0.0-1.3)
[2021-08-20 03:32] LABS: BUN/Creatinine Ratio 69 (6-26); Blood Urea Nitrogen 25 mg/dL (8-23); Calcium 7.9 mg/dL (8.6-10.3); Carbon Dioxide 33 mEq/L (23-29); Chloride 106 mEq/L (98-107); Glucose 129 mg/dL (70-105); Osmolality,Calculated 298 (280-300); Potassium 4.1 mEq/L (3.5-5.1); Sodium 141 mEq/L (136-145); eGFR For African Americans > 60 (> 60); eGFR For Non-African Americans > 60 (> 60)
[2021-08-20 03:38] LABS: Large Platelets Present (Not Present); Platelet Estimate Increased (Normal); Polychromasia 1+ (Not Present)
[2021-08-20] MEDS: Ipratropium/Albuterol Neb 3 ML IH SCH ×4 (04:26→15:46)
[2021-08-20] MEDS: Acetylcysteine 10% 2 ML INHSOL IH SCH ×4 (04:26→15:46)
[2021-08-20] MEDS: *HR* Enoxaparin 40 MG/0.4 ML SYRINGE SQ SCH (05:13)
[2021-08-20] MEDS: Doxycycline 100 MG in 0.9 % Sodium Chloride Mini Bag 100 ML IVPB SCH (05:14)
[2021-08-20] MEDS: Lactobacillus 1 EACH CAP.SPRINK PO SCH (08:35)
[2021-08-20] MEDS: Metoprolol XL (24 HR) Succ 25 MG TAB.ER.24H PO SCH (08:35)
[2021-08-20] MEDS: MetroNIDAZOLE 500 MG/100 ML 500 MG/100 ML BAG IVPB SCH ×2 (08:36→15:48)
[2021-08-20] MEDS: Aspirin Enteric Coated 81 MG Tablet PO SCH (08:36)
[2021-08-20] MEDS: Cefepime HCl 2,000 MG in Water for inj. (sterile) 20 ML IVP SCH (10:30)
[2021-08-20] MEDS: MethylPREDNISolone 40 MG/ML VIAL IVP SCH (10:30)
[2021-08-20] MEDS ORDERED: *HR* LORazepam 1 MG TABLET PO ONE (11:21)
[2021-08-20] MEDS ORDERED: Isovue-370 500 ML BOTTLE IVP ONE (12:23)
[2021-08-20 14:30] VITALS: BP 142/62; PULSE 72; TEMP 98.1
[2021-08-20 16:31] VITALS: O2SAT 96
== END 2021-08-20 16:59 | disposition home health service (06) | DRG 871 ==
LOC: 3BNU 11:53 → EMEROOARM 11:53 → SUATTDRO 15:33 → 3BNU 16:37 → SUATTDRO 08-07 12:17
PROVIDERS: ADMIT Internal Medicine; ATTEND Internal Medicine

== ENCOUNTER 2022-04-21 02:43 | Inpatient (IN) ==
[2022-04-21] MEDS ORDERED: *HR* FentaNYL (PF) 100 MCG/2 ML VIAL IVP ONE (02:55)
[2022-04-21] MEDS ORDERED: Iopamidol - 370 500 ML MLS IVP ONE (02:56)
[2022-04-21 03:17] LABS: Basophils # 0.1 K/mcL (0.0-0.2); Basophils % 0.2 %; Eosinophils # 0.5 K/mcL (0.0-0.6); Eosinophils % 1.9 %; Hematocrit 34.8 % (37.5-50.1); Hemoglobin 10.7 g/dL (12.9-16.9); Immature Granulocytes % 0.6 % (0-4); Lymphocytes % 3.5 %; Mean Corpuscular HGB Conc 30.7 g/dL (31.6-35.5); Mean Corpuscular Hemoglobin 27.9 pg (28.0-33.3); Mean Corpuscular Volume 90.9 fL (83.0-100.0); Mean Platelet Volume 9.8 fL (9.4-12.4); Monocytes # 0.9 K/mcL (0.0-1.3); Monocytes % 3.6 %; Neutrophils # 21.8 K/mcL (1.6-8.9); Platelet Count 374 K/mcL (140-400); Red Blood Count 3.83 M/mcL (4.19-5.50); Red Cell Distribution Width 13.8 % (11.5-14.5); Segmented Neutrophils % 90.2 %; White Blood Count 24.2 K/mcL (4.3-11.1)
[2022-04-21 03:18] LABS: Lymphocytes # 0.9 K/mcL (0.6-4.6)
[2022-04-21 03:25] LABS: Prothrombin Time 10.6 Seconds (9.4-12.1)
[2022-04-21 03:28] LABS: Activated Partial Thrombo Time 28.2 Seconds (26.0-36.0)
[2022-04-21 03:36] LABS: Platelet Estimate Normal (Normal)
[2022-04-21 03:38] LABS: BUN/Creatinine Ratio 27 (6-26); Blood Urea Nitrogen 18 mg/dL (8-23); Calcium 9.2 mg/dL (8.6-10.3); Carbon Dioxide 33 mEq/L (23-29); Chloride 101 mEq/L (98-107); Glucose 115 mg/dL (70-105); Osmolality,Calculated 301 (280-300); Potassium 3.5 mEq/L (3.5-5.1); Sodium 144 mEq/L (136-145); eGFR For African Americans > 60 (> 60); eGFR For Non-African Americans > 60 (> 60)
[2022-04-21 03:41] LABS: Troponin I 0.04 ng/mL (< 0.04)
[2022-04-21] MEDS ORDERED: Cefepime HCl 2,000 MG in 0.9 % Sodium Chloride 10 ML IVP ONE (04:39)
[2022-04-21] MEDS ORDERED: Ipratropium/Albuterol Neb 3 ML IH ONE (04:40)
[2022-04-21] MEDS ORDERED: *HR* OxyCODONE/APAP 10/325 TABLET PO ONE (04:55)
[2022-04-21] MEDS ORDERED: Vancomycin 1,250 MG/262.5 ML IV.SOLN IVPB ONE (05:00)
[2022-04-21] MEDS ORDERED: Naloxone 0.4 MG/ML INJ IVP PRN (05:20)
[2022-04-21] MEDS ORDERED: Ondansetron ODT 4 MG TAB.RAPDIS SL PRN (05:20)
[2022-04-21] MEDS ORDERED: Perflutren Lipid Microsphere 1.3 ML in 0.9 % Sodium Chloride 8.7 ML IVP PRN (05:23)
[2022-04-21] MEDS ORDERED: Ipratropium/Albuterol Neb 3 ML IH PRN (05:29)
[2022-04-21] MEDS ORDERED: 0.9 % Sodium Chloride 1,000 ML IVC SCH (05:30)
[2022-04-21 07:14] LABS: Magnesium 1.7 mg/dL (1.6-2.6); Phosphorous 3.1 mg/dL (2.7-4.5)
[2022-04-21 07:28] LABS: Thyroid Stimulating Hormone 0.56 mcIU/mL (0.340-5.600)
[2022-04-21 07:49] LABS: ABG Base Excess 7 mEq/L (-2 to 3); ABG HCO3 34 mEq/L (21-27); ABG Oxygen Saturation 97 % (95-98); ABG PCO2 60 mmHg (35-45); ABG PH 7.36 pH Units (7.32-7.45); ABG PO2 93 mmHg (85-104); ABG TCO2 36 mEq/L (20-26)
[2022-04-21] MEDS: Aspirin 81 MG TAB.CHEW PO SCH (08:27)
[2022-04-21] MEDS ORDERED: predniSONE 20 MG TABLET PO SCH (09:00)
[2022-04-21 09:48] LABS: Adenovirus Not Detected (Not Detect); Bordetella Pertussis Not Detected (Not Detect); Chlamydophila pneumoniae Not Detected (Not Detect); Coronavirus 229E Not Detected (Not Detect); Coronavirus HKU1 Not Detected (Not Detect); Coronavirus NL63 Not Detected (Not Detect); Coronavirus OC43 Not Detected (Not Detect); Human Metapneumovirus Not Detected (Not Detect); Human Rhinovirus/Enterovirus Not Detected (Not Detect); Influenza A Subtype 2009 H1 Not Detected (Not Detect); Influenza B Not Detected (Not Detect); Mycoplasma pneumoniae Not Detected (Not Detect); Parainfluenza Virus 1 Not Detected (Not Detect); Parainfluenza Virus 2 Not Detected (Not Detect); Parainfluenza Virus 3 Not Detected (Not Detect); Parainfluenza Virus 4 Not Detected (Not Detect); Respiratory Syncytial Virus Not Detected (Not Detect)
[2022-04-21 09:49] LABS: SARS-CoV-2 DETECTED (Not Detect)
[2022-04-21] MEDS: *HR* OxyCODONE/APAP 10/325 TABLET PO PRN ×2 (10:14→16:07)
[2022-04-21] MEDS: Ipratropium/Albuterol Neb 3 ML IH SCH ×3 (10:33→15:26)
[2022-04-21 11:15] LABS: Estimated Average Glucose 114 mg/dl; Hemoglobin A1C 5.6 %
[2022-04-21] MEDS: MethylPREDNISolone 40 MG/ML VIAL IVP SCH ×3 (12:17→23:39)
[2022-04-21] MEDS ORDERED: Vancomycin 1,000 MG VIAL ONE (17:52)
[2022-04-21] MEDS: Ipratropium 1 PUFF INHALER IH SCH ×2 (20:22→23:03)
[2022-04-22 01:19] LABS: Basophils # 0.2 K/mcL (0.0-0.2); Basophils % 0.5 %; Hematocrit 39.5 % (37.5-50.1); Hemoglobin 11.4 g/dL (12.9-16.9); Immature Granulocytes % 0.8 % (0-4); Lymphocytes # 0.3 K/mcL (0.6-4.6); Lymphocytes % 0.8 %; Mean Corpuscular HGB Conc 28.9 g/dL (31.6-35.5); Mean Corpuscular Hemoglobin 27.6 pg (28.0-33.3); Mean Corpuscular Volume 95.6 fL (83.0-100.0); Monocytes # 1.2 K/mcL (0.0-1.3); Monocytes % 3.4 %; Neutrophils # 32.4 K/mcL (1.6-8.9); Platelet Count 221 K/mcL (140-400); Red Blood Count 4.13 M/mcL (4.19-5.50); Red Cell Distribution Width 13.7 % (11.5-14.5); Segmented Neutrophils % 94.5 %
[2022-04-22 01:21] LABS: White Blood Count 34.3 K/mcL (4.3-11.1)
[2022-04-22 01:24] LABS: Chol/HDL Ratio 1.9 (0-4.9); Cholesterol 149 mg/dL (< 200); HDL Cholesterol 78 mg/dL (40-59); LDL Cholesterol,Calculated 53 mg/dL (< 100); Triglycerides 92 mg/dL (< 150)
[2022-04-22 02:26] LABS: Platelet Estimate Normal (Normal)
[2022-04-22] MEDS: *HR* OxyCODONE/APAP 10/325 TABLET PO PRN ×3 (03:00→21:17)
[2022-04-22] MEDS: Ipratropium 1 PUFF INHALER IH SCH ×2 (03:38→07:39)
[2022-04-22] MEDS: MethylPREDNISolone 40 MG/ML VIAL IVP SCH ×3 (06:14→17:26)
[2022-04-22] MEDS: Budesonide/Formoterol 160/4.5 1 PUFF INH IH SCH ×2 (07:39→20:08)
[2022-04-22] MEDS ORDERED: Metoprolol XL (24 HR) Succ 25 MG TAB.ER.24H PO SCH (09:00)
[2022-04-22] MEDS: Isosorbide MONOnitrate (24 HR) 30 MG TAB.ER.24H PO SCH (09:24)
[2022-04-22] MEDS: Cyanocobalamin (B-12) 1,000 MCG TABLET PO SCH (09:24)
[2022-04-22] MEDS: Folic Acid 1 MG TABLET PO SCH (09:24)
[2022-04-22] MEDS: Aspirin 81 MG TAB.CHEW PO SCH (09:24)
[2022-04-22] MEDS: Ipratropium/Albuterol Neb 3 ML IH SCH ×6 (11:12→23:45)
[2022-04-22] MEDS: Nitroglycerin 0.4 MG TAB.SUBL SL PRN ×2 (11:59→12:06)
[2022-04-22] MEDS: Cefepime HCl 2,000 MG in 0.9 % Sodium Chloride 10 ML IVP SCH ×2 (13:54→21:19)
[2022-04-22] MEDS ORDERED: *HR* LORazepam 2 MG/ML VIAL IVP ONE (20:56)
[2022-04-22] MEDS: Metoprolol XL (24 HR) Succ 25 MG TAB.ER.24H PO SCH (21:17)
[2022-04-22] MEDS: Melatonin 3 MG TABLET PO PRN (21:17)
[2022-04-22] MEDS: *HR* Enoxaparin 40 MG/0.4 ML SYRINGE SQ SCH (21:18)
[2022-04-23] MEDS: MethylPREDNISolone 40 MG/ML VIAL IVP SCH ×5 (00:12→23:13)
[2022-04-23] MEDS: Cefepime HCl 2,000 MG in 0.9 % Sodium Chloride 10 ML IVP SCH ×3 (00:32→21:18)
[2022-04-23 02:15] LABS: Alanine Aminotransferase 8 Units/L (7-52); Albumin 3.3 g/dL (3.5-5.7); Albumin/Globulin Ratio 1.1 (1.1-2.2); Alkaline Phosphatase 55 Units/L (34-104); Aspartate Amino Transferase 9 Units/L (13-39); BUN/Creatinine Ratio 53 (6-26); Bilirubin,Total 0.3 mg/dL (0.3-1.0); Blood Urea Nitrogen 31 mg/dL (8-23); C-Reactive Protein 174 mg/L (Less than 10); Calcium 9.2 mg/dL (8.6-10.3); Carbon Dioxide 32 mEq/L (23-29); Chloride 103 mEq/L (98-107); Globulin 2.9 g/dL (2.4-3.5); Glucose 132 mg/dL (70-105); Osmolality,Calculated 300 (280-300); Potassium 3.8 mEq/L (3.5-5.1); Sodium 141 mEq/L (136-145); Total Protein 6.2 g/dL (6.4-8.9); eGFR For African Americans > 60 (> 60); eGFR For Non-African Americans > 60 (> 60)
[2022-04-23 03:01] LABS: Basophils % 0.1 %; Hemoglobin 9.1 g/dL (12.9-16.9); Lymphocytes % 0.6 %; Mean Corpuscular Hemoglobin 27.5 pg (28.0-33.3); Red Blood Count 3.31 M/mcL (4.19-5.50)
[2022-04-23 03:03] LABS: Hematocrit 29.5 % (37.5-50.1); Immature Granulocytes % 0.9 % (0-4); Lymphocytes # 0.2 K/mcL (0.6-4.6); Mean Corpuscular HGB Conc 30.8 g/dL (31.6-35.5); Mean Corpuscular Volume 89.1 fL (83.0-100.0); Mean Platelet Volume 10.2 fL (9.4-12.4); Monocytes # 0.5 K/mcL (0.0-1.3); Monocytes % 1.9 %; Neutrophils # 27.3 K/mcL (1.6-8.9); Platelet Count 281 K/mcL (140-400); Red Cell Distribution Width 13.7 % (11.5-14.5); Segmented Neutrophils % 96.5 %; White Blood Count 28.3 K/mcL (4.3-11.1)
[2022-04-23 03:25] LABS: Platelet Estimate Normal (Normal)
[2022-04-23] MEDS: Ipratropium/Albuterol Neb 3 ML IH SCH ×6 (03:52→23:57)
[2022-04-23] MEDS: Nitroglycerin 0.4 MG TAB.SUBL SL PRN ×2 (04:42→04:47)
[2022-04-23] MEDS: *HR* OxyCODONE/APAP 10/325 TABLET PO PRN ×2 (05:45→17:45)
[2022-04-23] MEDS: Budesonide/Formoterol 160/4.5 1 PUFF INH IH SCH ×2 (07:44→19:38)
[2022-04-23] MEDS: Folic Acid 1 MG TABLET PO SCH (08:07)
[2022-04-23] MEDS: Aspirin 81 MG TAB.CHEW PO SCH (08:07)
[2022-04-23] MEDS: Isosorbide MONOnitrate (24 HR) 30 MG TAB.ER.24H PO SCH (08:07)
[2022-04-23] MEDS: Cyanocobalamin (B-12) 1,000 MCG TABLET PO SCH (08:08)
[2022-04-23] MEDS: *HR* Enoxaparin 40 MG/0.4 ML SYRINGE SQ SCH ×2 (08:08→21:17)
[2022-04-23] MEDS ORDERED: *HR* LORazepam 2 MG/ML VIAL IVP ONE (09:27)
[2022-04-23 11:20] LABS: Alanine Aminotransferase 11 Units/L (7-52); Albumin 3.6 g/dL (3.5-5.7); Albumin/Globulin Ratio 1.4 (1.1-2.2); Alkaline Phosphatase 69 Units/L (34-104); Aspartate Amino Transferase 20 Units/L (13-39); BUN/Creatinine Ratio 36 (6-26); Bilirubin,Total 0.3 mg/dL (0.3-1.0); Blood Urea Nitrogen 20 mg/dL (8-23); C-Reactive Protein 272 mg/L (Less than 10); Calcium 9.2 mg/dL (8.6-10.3); Carbon Dioxide 25 mEq/L (23-29); Chloride 101 mEq/L (98-107); Globulin 2.6 g/dL (2.4-3.5); Glucose 111 mg/dL (70-105); Osmolality,Calculated 293 (280-300); Potassium 4.4 mEq/L (3.5-5.1); Sodium 140 mEq/L (136-145); Total Protein 6.2 g/dL (6.4-8.9); eGFR For African Americans > 60 (> 60); eGFR For Non-African Americans > 60 (> 60)
[2022-04-23] MEDS: Doxycycline 100 MG CAPSULE PO SCH ×2 (13:13→21:17)
[2022-04-23] MEDS: Melatonin 3 MG TABLET PO PRN (21:17)
[2022-04-23] MEDS: Metoprolol XL (24 HR) Succ 25 MG TAB.ER.24H PO SCH (21:17)
[2022-04-24 02:09] LABS: Hematocrit 28.5 % (37.5-50.1); Hemoglobin 8.8 g/dL (12.9-16.9); Mean Corpuscular HGB Conc 30.9 g/dL (31.6-35.5); Mean Corpuscular Hemoglobin 27.8 pg (28.0-33.3); Mean Corpuscular Volume 90.2 fL (83.0-100.0); Mean Platelet Volume 10.8 fL (9.4-12.4); Monocytes # 0.4 K/mcL (0.0-1.3); Platelet Count 286 K/mcL (140-400); Red Blood Count 3.16 M/mcL (4.19-5.50); Red Cell Distribution Width 13.7 % (11.5-14.5); White Blood Count 19.4 K/mcL (4.3-11.1)
[2022-04-24 02:37] LABS: Alanine Aminotransferase 9 Units/L (7-52); Albumin 3.3 g/dL (3.5-5.7); Albumin/Globulin Ratio 1.2 (1.1-2.2); Alkaline Phosphatase 58 Units/L (34-104); Aspartate Amino Transferase 11 Units/L (13-39); BUN/Creatinine Ratio 51 (6-26); Bilirubin,Total 0.3 mg/dL (0.3-1.0); Blood Urea Nitrogen 36 mg/dL (8-23); C-Reactive Protein 69 mg/L (Less than 10); Calcium 8.8 mg/dL (8.6-10.3); Carbon Dioxide 31 mEq/L (23-29); Chloride 104 mEq/L (98-107); Globulin 2.7 g/dL (2.4-3.5); Glucose 134 mg/dL (70-105); Osmolality,Calculated 304 (280-300); Potassium 3.9 mEq/L (3.5-5.1); Sodium 142 mEq/L (136-145); eGFR For African Americans > 60 (> 60); eGFR For Non-African Americans > 60 (> 60)
[2022-04-24] MEDS: Cefepime HCl 2,000 MG in 0.9 % Sodium Chloride 10 ML IVP SCH ×2 (02:40→13:36)
[2022-04-24 02:54] LABS: Lymphocytes # 0.4 K/mcL (0.6-4.6); Neutrophils # 18.6 K/mcL (1.6-8.9)
[2022-04-24 02:55] LABS: Platelet Estimate Normal (Normal)
[2022-04-24] MEDS: Ipratropium/Albuterol Neb 3 ML IH SCH ×3 (03:29→11:08)
[2022-04-24] MEDS: MethylPREDNISolone 40 MG/ML VIAL IVP SCH ×2 (04:43→13:36)
[2022-04-24] MEDS: *HR* OxyCODONE/APAP 10/325 TABLET PO PRN (04:44)
[2022-04-24] MEDS: Nitroglycerin 0.4 MG TAB.SUBL SL PRN ×2 (04:49→04:55)
[2022-04-24] MEDS: Budesonide/Formoterol 160/4.5 1 PUFF INH IH SCH (07:34)
[2022-04-24] MEDS: Aspirin 81 MG TAB.CHEW PO SCH (09:07)
[2022-04-24] MEDS: Folic Acid 1 MG TABLET PO SCH (09:08)
[2022-04-24] MEDS: Cyanocobalamin (B-12) 1,000 MCG TABLET PO SCH (09:08)
[2022-04-24] MEDS: Isosorbide MONOnitrate (24 HR) 30 MG TAB.ER.24H PO SCH (09:08)
[2022-04-24] MEDS: Doxycycline 100 MG CAPSULE PO SCH (09:08)
[2022-04-24] MEDS: *HR* Enoxaparin 40 MG/0.4 ML SYRINGE SQ SCH (09:08)
[2022-04-24 10:40] VITALS: BP 154/69; PULSE 76; TEMP 97.8
[2022-04-24 11:09] VITALS: O2SAT 96
== END 2022-04-24 14:45 | disposition home or self-care (01) | DRG 871 ==
LOC: EMEROOARM 02:43 → 3BNU 02:43 → SUATTDRO 05:26 → 3BNU 05:54
PROVIDERS: ADMIT Student in an Organized Health Care Education/Training Program; ATTEND Hospitalist